=== PATIENT | male | born 1985 | race Caucasian/White ===

== ENCOUNTER 2020-11-02 17:46 | Inpatient (IN) | payer OTHER, SELFPAY ==
[~2020-11-02] VITALS: Ht 175.3 cm; Wt 84.5 kg
[2020-11-02] MEDS ORDERED: NS 1,000 ML IV SCH (18:00)
[2020-11-02 18:36] LABS: HEMATOCRIT 29.8 % (42.0-52.0); HEMOGLOBIN 9.3 g/dl (13.5-17.5); MEAN CORPUSCULAR HEMOGLOBIN 26.6 pg (27.0-33.0); MEAN CORPUSCULAR HGB CONC 31.2 g/dl (32.0-36.5); MEAN CORPUSCULAR VOLUME 85.1 fl (80.0-96.0); PLATELET COUNT, AUTOMATED 510 10^3/uL (150-450)
[2020-11-02] MEDS ORDERED: D5W IV ONE ×3 (18:45→20:00)
[2020-11-02] MEDS ORDERED: ACETYLCYSTEINE IV ONE ×3 (18:45→20:00)
[2020-11-02 18:46] LABS: INR 1.36; PROTHROMBIN TIME 17.1 SECONDS (12.5-14.3)
[2020-11-02 18:47] LABS: PARTIAL THROMBOPLASTIN TIME 38.5 SECONDS (24.2-38.5)
[2020-11-02] MEDS ORDERED: LABE20TAB PO (19:03)
[2020-11-02] MEDS ORDERED: SERT50TA29 PO (19:03)
[2020-11-02] MEDS ORDERED: INVE156I IM (19:03)
[2020-11-02] MEDS ORDERED: VITA1CAP25 (19:03)
[2020-11-02] MEDS ORDERED: MELA10CA PO (19:03)
[2020-11-02] MEDS ORDERED: OLAN5TAB PO (19:03)
[2020-11-02] MEDS ORDERED: HYDR-3363 (19:03)
[2020-11-02 19:07] LABS: ACETAMINOPHEN LEVEL < 2.0 UG/ML (10.0-30.0); ALBUMIN 3.1 GM/DL (3.2-5.2); ALT/SGPT 3289 U/L (12-78); BILIRUBIN,DIRECT 0.3 MG/DL (0.0-0.2); BILIRUBIN,TOTAL 0.4 MG/DL (0.2-1.0); BLOOD UREA NITROGEN 16 MG/DL (7-18); CALCIUM LEVEL 8.4 MG/DL (8.5-10.1); CARBON DIOXIDE LEVEL 23 MEQ/L (21-32); CHLORIDE LEVEL 105 MEQ/L (98-107); CREATININE FOR GFR 0.87 MG/DL (0.70-1.30); ETHYL ALCOHOL (ETHANOL) < 0.003 % (0.000-0.010); GLOMERULAR FILTRATION RATE > 60.0 (>60); GLUCOSE, FASTING 107 MG/DL (70-100); LIPASE 187 U/L (73-393); POTASSIUM SERUM 3.6 MEQ/L (3.5-5.1); SODIUM LEVEL 138 MEQ/L (136-145); TOTAL PROTEIN 6.3 GM/DL (6.4-8.2)
[2020-11-02 19:09] LABS: ATYPICAL LYMPH 3 % (0-5); BASOPHILS 1 % (0-1); EOSINOPHILS 2 % (0-3); LYMPHOCYTES 21 % (16-44); MONOCYTES 6 % (0-5); NEUTROPHILS 63 % (28-66); PLATELET ESTIMATE INCREASED (NORMAL)
[2020-11-02 19:10] LABS: HYPOCHROMASIA 1+; TOXIC VACUOLATION 1+
[2020-11-02] MEDS ORDERED: ASPI81TA26 PO (19:21)
[2020-11-02] MEDS: NS 1,000 ML IV SCH (20:12)
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
[2020-11-02 20:34] LABS: CK-MB VALUE MASS 1.4 NG/ML (<3.6); CPK CREATINE PHOSPHOKINASE 101 U/L (39-308); MB/CK RELATIVE INDEX 1.39 (< OR =4); TROPONIN I < 0.02 NG/ML (< 0.10)
[2020-11-02 21:15] VITALS: BP 140/76
[2020-11-02] MEDS ORDERED: LORazepam 0.5 MG TAB PO PRN (21:50)
[2020-11-02] MEDS: HEPARIN SOD (PORCINE) 5000UNITS/ML 1ML VIAL/SYRINGE SC SCH (22:00)
[2020-11-02] MEDS: traMADol 50 MG TAB PO PRN (22:01)
[2020-11-03] MEDS ORDERED: ACETYLCYSTEINE IV ONE ×4
[2020-11-03] MEDS ORDERED: D5W IV ONE ×4
[2020-11-03 04:00] VITALS: BP 137/77
[2020-11-03] MEDS: NS 1,000 ML IV SCH ×3 (04:20→13:43)
[2020-11-03 06:10] LABS: HEMATOCRIT 29.5 % (42.0-52.0); HEMOGLOBIN 9.2 g/dl (13.5-17.5); MEAN CORPUSCULAR HEMOGLOBIN 26.3 pg (27.0-33.0); MEAN CORPUSCULAR HGB CONC 31.2 g/dl (32.0-36.5); MEAN CORPUSCULAR VOLUME 84.3 fl (80.0-96.0); PLATELET COUNT, AUTOMATED 490 10^3/uL (150-450); WHITE BLOOD COUNT 8.8 10^3/uL (4.0-10.0)
[2020-11-03 06:35] LABS: ALBUMIN 2.8 GM/DL (3.2-5.2); ALT/SGPT 2587 U/L (12-78); BILIRUBIN,TOTAL 0.4 MG/DL (0.2-1.0); BLOOD UREA NITROGEN 9 MG/DL (7-18); CALCIUM LEVEL 8.1 MG/DL (8.5-10.1); CARBON DIOXIDE LEVEL 26 MEQ/L (21-32); CHLORIDE LEVEL 107 MEQ/L (98-107); CREATININE FOR GFR 0.69 MG/DL (0.70-1.30); GLOMERULAR FILTRATION RATE > 60.0 (>60); GLUCOSE, FASTING 86 MG/DL (70-100); MAGNESIUM LEVEL 1.8 MG/DL (1.8-2.4); POTASSIUM SERUM 3.5 MEQ/L (3.5-5.1); SODIUM LEVEL 141 MEQ/L (136-145)
[2020-11-03 07:24] VITALS: BP 137/82
[2020-11-03] MEDS: HEPARIN SOD (PORCINE) 5000UNITS/ML 1ML VIAL/SYRINGE SC SCH ×3 (08:08→20:26)
[2020-11-03] MEDS: ASPIRIN 81MG ENTERIC TABLET PO SCH (08:08)
[2020-11-03] MEDS ORDERED: SERTRALINE HCL 50 MG TAB PO SCH (09:00)
[2020-11-03 09:50] LABS: FERRITIN 1148 NG/ML (26-388); IRON (FE) 61 UG/DL (65-175); PERCENT SATURATION 32.3 % (19.7-50.0); TOTAL IRON BINDING CAPACITY 189 UG/DL (250-450)
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
[2020-11-03 10:30] LABS: VITAMIN B12 LEVEL > 2000 PG/ML (247-911)
[2020-11-03 10:33] LABS: FOLATE 18.9 NG/ML (>5.4)
[2020-11-03 10:48] LABS: HEPATITIS B SURFACE ANTIGEN NEGATIVE (NEGATIVE)
[2020-11-03 11:15] LABS: HEPATITIS B CORE ANTIBODY IGM NEGATIVE (NEGATIVE); HEPATITIS C VIRUS ABY INDEX < 0.0 INDEX (<0.8)
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
[2020-11-03 12:00] VITALS: BP 133/70
[2020-11-03 12:11] LABS: HEPATITIS A ANTIBODY IGM POSITIVE (NEGATIVE)
[2020-11-03] MEDS ORDERED: OXAZEPAM 15 MG CAP PO PRN (13:40)
[2020-11-03] MEDS ORDERED: OXAZEPAM 15 MG CAP PO SCH (14:00)
[2020-11-03 16:00] VITALS: BP 152/96
[2020-11-03] MEDS: traMADol 50 MG TAB PO PRN (17:52)
[2020-11-03 19:08] LABS: ALBUMIN 2.6 GM/DL (3.2-5.2); BILIRUBIN,DIRECT 0.2 MG/DL (0.0-0.2); BILIRUBIN,TOTAL 0.3 MG/DL (0.2-1.0); TOTAL PROTEIN 5.5 GM/DL (6.4-8.2)
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
[2020-11-03 20:00] VITALS: BP 139/76
--- NOTE | 2020-11-03 20:07 | MHIPNPDOC ---
[facility] Progress Note Progress Note DATE OF SERVICE: 11/03/20 Spoke with Sara, his Nurse estiven. She said his ECG showed a QT c of less than 500. For that reason I have recommended 5 mgs of Haldol PO BID for psychosis. His AST and ALT are trending down. I would recommend to have another ECG done tomorrow in a.m.. Vital Signs Vital Signs Date Time Temp Pulse Resp B/P (MAP) Pulse Ox O2 Delivery O2 Flow Rate FiO2 11/03/20 17:52 18 11/03/20 16:00 98.0 107 152/96 (114) 99 Room Air Laboratory Data 24H Labs Laboratory Tests 2 11/03/20 05:28: Nucleated Red Blood Cells % (auto) 0.0, Anion Gap 8, Glomerular Filtration Rate > 60.0, Calcium Level 8.1L, Magnesium Level 1.8, Iron Level 61L, Total Iron Binding Capacity 189L, Transferrin % Saturation 32.3, Ferritin 1148H, Total Bilirubin 0.4, Aspartate Amino Transf (AST/SGOT) 570H, Alanine Aminotransferase (ALT/SGPT) 2587H, Alkaline Phosphatase 124H, Total Protein 6.0L, Albumin 2.8L, Albumin/Globulin Ratio 0.9, Vitamin B12 Level > 2000H, Folate 18.9 11/03/20 12:25: 11/03/20 18:22: Total Bilirubin 0.3, Aspartate Amino Transf (AST/SGOT) 343H, Alanine Aminotransferase (ALT/SGPT) 1935H, Alkaline Phosphatase 122H, Total Protein 5.5L, Albumin 2.6L, Albumin/Globulin Ratio 0.9, Direct Bilirubin 0.2 CBC/BMP Laboratory Tests 11/03/20 05:28 Current Medications Current Medications Medications (Trade) Dose Ordered Sig/Darío Route PRN Reason Start Time Stop Time Status Last Admin Dose Admin Aspirin (Ecotrin) 81 mg DAILY PO 11/03/20 09:00 11/03/20 08:08 Heparin Sodium (Porcine) (Heparin) 5,000 units Q12H SC 11/02/20 21:00 11/03/20 08:08 Home Med (Med Rec Complete!) ASDIRECTED XX 11/02/20 19:25 11/02/20 19:26 DC Lorazepam (Ativan) 0.5 mg Q6HP PRN PO ANXIETY 11/02/20 21:50 11/03/20 12:20 DC 11/02/20 22:00 Oxazepam (Serax) 30 mg BID PO 11/03/20 19:30 Oxazepam (Serax) 30 mg Q8H PO 11/03/20 14:00 11/03/20 13:37 DC Oxazepam (Serax) 30 mg Q8H PRN PO ANXIETY 11/03/20 13:40 11/03/20 19:26 DC Sertraline HCl (Zoloft) 150 mg DAILY PO 11/03/20 09:00 11/03/20 11:30 DC 11/03/20 08:08 Sodium Chloride 1,000 ml @ 100 mls/hr Q10H IV 11/02/20 18:00 11/02/20 20:09 DC 11/02/20 18:34 Sodium Chloride 1,000 ml @ 120 mls/hr Q8H20M IV 11/02/20 20:00 11/03/20 13:43 Tramadol HCl (Ultram) 50 mg Q8HP PRN PO MODERATE PAIN (PS 5-7) 11/02/20 21:50 11/03/20 17:52 Allergies Coded Allergies: No Known Allergies (Unverified , 11/02/20) JORDAN CLAY MD Nov 03, 2020 20:07
[2020-11-03] MEDS: OXAZEPAM 15 MG CAP PO SCH (20:24)
[2020-11-03] MEDS: haloperidoL 5 MG TAB PO SCH (21:24)
[2020-11-04] VITALS: BP 143/76
[2020-11-04] MEDS: NS 1,000 ML IV SCH ×3 (01:14→11:24)
[2020-11-04 04:00] VITALS: BP 127/82
[2020-11-04 05:40] LABS: HEMATOCRIT 28.4 % (42.0-52.0); HEMOGLOBIN 8.7 g/dl (13.5-17.5); MEAN CORPUSCULAR HEMOGLOBIN 26.8 pg (27.0-33.0); MEAN CORPUSCULAR HGB CONC 30.6 g/dl (32.0-36.5); MEAN CORPUSCULAR VOLUME 87.4 fl (80.0-96.0); PLATELET COUNT, AUTOMATED 400 10^3/uL (150-450); RED BLOOD COUNT 3.25 10^6/uL (4.30-6.10); WHITE BLOOD COUNT 5.4 10^3/uL (4.0-10.0)
[2020-11-04 06:08] LABS: ALBUMIN 2.6 GM/DL (3.2-5.2); ALT/SGPT 1636 U/L (12-78); BILIRUBIN,DIRECT 0.2 MG/DL (0.0-0.2); BILIRUBIN,TOTAL 0.2 MG/DL (0.2-1.0); BLOOD UREA NITROGEN 11 MG/DL (7-18); CALCIUM LEVEL 7.7 MG/DL (8.5-10.1); CARBON DIOXIDE LEVEL 25 MEQ/L (21-32); CHLORIDE LEVEL 111 MEQ/L (98-107); CREATININE FOR GFR 0.62 MG/DL (0.70-1.30); GLOMERULAR FILTRATION RATE > 60.0 (>60); GLUCOSE, FASTING 80 MG/DL (70-100); POTASSIUM SERUM 3.8 MEQ/L (3.5-5.1); SODIUM LEVEL 145 MEQ/L (136-145); TOTAL PROTEIN 5.5 GM/DL (6.4-8.2)
[2020-11-04 07:26] VITALS: BP 151/87
[2020-11-04] MEDS: OXAZEPAM 15 MG CAP PO SCH ×2 (08:29→21:02)
[2020-11-04] MEDS: ASPIRIN 81MG ENTERIC TABLET PO SCH (08:29)
[2020-11-04] MEDS: haloperidoL 5 MG TAB PO SCH ×2 (08:30→21:02)
[2020-11-04] MEDS: HEPARIN SOD (PORCINE) 5000UNITS/ML 1ML VIAL/SYRINGE SC SCH ×3 (08:30→21:03)
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
--- NOTE | 2020-11-04 11:06 | ECHO ---
DATE OF PROCEDURE: 11/03/2020 Age: 35 Gender: Male Height: 175 cm Weight: 81 kg REFERRING PHYSICIAN: Oscar Simon DO. INDICATION: Cardiac dysrhythmia. MEASUREMENTS: IVS 0.8 cm LV 5.0 cm LVPW 1.0 cm LA 3.7 cm Aorta 2.9 cm RV 3.2 cm IVC 1.2 cm Mitral E wave velocity 106 A wave 94 E prime septal 12.3 E prime lateral 13.8 FINDINGS: This study is of acceptable technical quality. Underlying sinus rhythm. Left ventricle is normal size and systolic function. Estimated EF approximately 60%. Right ventricle also appears to have normal size and systolic function. Aortic, mitral, and tricuspid valves appear normal. Pulmonic valve was not well seen. No pericardial effusion is noted. Inferior vena cava is normal size and appropriately collapses with inspiration indicative of normal central venous pressure. Aortic root and abdominal aorta appear normal. Aortic arch was not well seen. Doppler interrogation reveals competent aortic and mitral valves. Same applies for tricuspid valve. Mitral inflow pattern and tissue Doppler imaging of mitral annulus revealed normal diastolic function. CONCLUSIONS: 1. Study is of acceptable technical quality, underlying sinus tachycardia. 2. Normal LV size and systolic function, normal diastolic function. 3. No significant valvular disease. 4. Normal central venous pressure. 5. Unable to estimate pulmonary artery pressure but no signs to suggest pulmonary hypertension. MTDD
[2020-11-04 11:45] VITALS: BP 136/84
[2020-11-04 14:00] VITALS: BP 138/82
--- NOTE | 2020-11-04 16:58 | ECGEPIP ---
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 Electronically Signed on 11-04-2020 16:58:36 EDT by Giorgi Dunn
--- NOTE | 2020-11-04 17:00 | ECGEPIP ---
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 Electronically Signed on 11-04-2020 16:59:58 EDT by Giorgi Dunn
[2020-11-04] MEDS: traMADol 50 MG TAB PO PRN (17:51)
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
[2020-11-04] MEDS ORDERED: PROCHLORPERAZINE 5 MG TAB (S0183) PO PRN (20:10)
[2020-11-04 22:00] VITALS: BP 146/84
[2020-11-05 06:00] VITALS: BP 135/90
[2020-11-05 06:20] LABS: HEMATOCRIT 29.6 % (42.0-52.0); HEMOGLOBIN 9.1 g/dl (13.5-17.5); MEAN CORPUSCULAR HEMOGLOBIN 27.1 pg (27.0-33.0); MEAN CORPUSCULAR HGB CONC 30.7 g/dl (32.0-36.5); MEAN CORPUSCULAR VOLUME 88.1 fl (80.0-96.0); PLATELET COUNT, AUTOMATED 351 10^3/uL (150-450); RED BLOOD COUNT 3.36 10^6/uL (4.30-6.10); WHITE BLOOD COUNT 5.5 10^3/uL (4.0-10.0)
[2020-11-05 06:51] LABS: ALBUMIN 2.7 GM/DL (3.2-5.2); ALT/SGPT 1215 U/L (12-78); BILIRUBIN,TOTAL 0.3 MG/DL (0.2-1.0); BLOOD UREA NITROGEN 6 MG/DL (7-18); CALCIUM LEVEL 8.4 MG/DL (8.5-10.1); CARBON DIOXIDE LEVEL 25 MEQ/L (21-32); CHLORIDE LEVEL 109 MEQ/L (98-107); CREATININE FOR GFR 0.77 MG/DL (0.70-1.30); GLOMERULAR FILTRATION RATE > 60.0 (>60); GLUCOSE, FASTING 84 MG/DL (70-100); POTASSIUM SERUM 3.9 MEQ/L (3.5-5.1); SODIUM LEVEL 141 MEQ/L (136-145); TOTAL PROTEIN 5.8 GM/DL (6.4-8.2)
[2020-11-05] MEDS: OXAZEPAM 15 MG CAP PO SCH ×2 (08:33→21:04)
[2020-11-05] MEDS: haloperidoL 5 MG TAB PO SCH ×2 (08:33→21:04)
[2020-11-05] MEDS: ASPIRIN 81MG ENTERIC TABLET PO SCH (08:33)
[2020-11-05] MEDS: HEPARIN SOD (PORCINE) 5000UNITS/ML 1ML VIAL/SYRINGE SC SCH ×2 (08:34→21:00)
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
[2020-11-05 14:00] VITALS: BP 143/82
[2020-11-05] MEDS: traMADol 50 MG TAB PO PRN (14:43)
[2020-11-05] MEDS ORDERED: diphenhydrAMINE 50MG/ML VIAL (J1200) IV ONE (15:15)
[2020-11-05 22:00] VITALS: BP 136/68
[2020-11-06 01:07] LABS: CERULOPLASMIN 17.1 mg/dL (16.0-31.0)
[2020-11-06 06:00] VITALS: BP 139/88
[2020-11-06 06:11] LABS: HEMATOCRIT 32.2 % (42.0-52.0); HEMOGLOBIN 9.9 g/dl (13.5-17.5); MEAN CORPUSCULAR HEMOGLOBIN 27.2 pg (27.0-33.0); MEAN CORPUSCULAR HGB CONC 30.7 g/dl (32.0-36.5); MEAN CORPUSCULAR VOLUME 88.5 fl (80.0-96.0); PLATELET COUNT, AUTOMATED 426 10^3/uL (150-450); RED BLOOD COUNT 3.64 10^6/uL (4.30-6.10); WHITE BLOOD COUNT 8.7 10^3/uL (4.0-10.0)
[2020-11-06 06:40] LABS: ALBUMIN 2.8 GM/DL (3.2-5.2); ALT/SGPT 885 U/L (12-78); BILIRUBIN,TOTAL 0.1 MG/DL (0.2-1.0); BLOOD UREA NITROGEN 9 MG/DL (7-18); CALCIUM LEVEL 8.5 MG/DL (8.5-10.1); CARBON DIOXIDE LEVEL 26 MEQ/L (21-32); CHLORIDE LEVEL 109 MEQ/L (98-107); CREATININE FOR GFR 0.65 MG/DL (0.70-1.30); GLOMERULAR FILTRATION RATE > 60.0 (>60); GLUCOSE, FASTING 98 MG/DL (70-100); POTASSIUM SERUM 4.1 MEQ/L (3.5-5.1); SODIUM LEVEL 142 MEQ/L (136-145); TOTAL PROTEIN 6.2 GM/DL (6.4-8.2)
[2020-11-06] MEDS ORDERED: TRAM50TA2 PO (08:34)
[2020-11-06] MEDS ORDERED: OXAZ15CA4 PO (08:34)
[2020-11-06] MEDS ORDERED: HALO5TA PO (08:34)
[2020-11-06] MEDS: HEPARIN SOD (PORCINE) 5000UNITS/ML 1ML VIAL/SYRINGE SC SCH (09:00)
[2020-11-06] MEDS: OXAZEPAM 15 MG CAP PO SCH (09:38)
[2020-11-06] MEDS: ASPIRIN 81MG ENTERIC TABLET PO SCH (09:39)
[2020-11-06] MEDS: traMADol 50 MG TAB PO PRN (09:39)
[2020-11-06] MEDS: haloperidoL 5 MG TAB PO SCH (09:39)
--- NOTE | 2020-11-06 11:24 | REP ---
INDICATION: abdominal pain COMPARISON: None. TECHNIQUE: Supine view of the abdomen and pelvis. FINDINGS: Bowel gas pattern is nonspecific and without obstruction or perforation. No organomegaly. No abnormal calcifications. Skeletal structures intact. Surgical suture material identified in the right mid abdomen. IMPRESSION: Normal abdominal radiograph. <Electronically signed by Derrek Sexton > 11/06/20 [id number]
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
[2020-11-06 14:00] VITALS: BP 129/88
== END 2020-11-06 17:41 ==
LOC: M ED 17:46 → M ED INP 19:46 → M PCU 21:25 → M MSPAV 11-04 11:39
PROVIDERS: ADMIT Internal Medicine; ATTEND Internal Medicine
DX: B15.9 Hepatitis A without hepatic coma (principal); F25.9 Schizoaffective disorder, unspecified; I10 Essential (primary) hypertension; K91.870 Postprocedural hematoma of a digestive system organ or structure following a digestive system procedure; F31.9 Bipolar disorder, unspecified; F17.200 Nicotine dependence, unspecified, uncomplicated; R07.9 Chest pain, unspecified; T39.1X5A Adverse effect of 4-Aminophenol derivatives, initial encounter; R94.31 Abnormal electrocardiogram [ECG] [EKG]; F10.10 Alcohol abuse, uncomplicated; Z91.5 Personal history of self-harm; Z90.49 Acquired absence of other specified parts of digestive tract; Z79.82 Long term (current) use of aspirin; Z79.899 Other long term (current) drug therapy

== ENCOUNTER 2020-11-06 14:51 | Inpatient (IN) | payer OTHER ==
[~2020-11-06] VITALS: Ht 175.3 cm; Wt 86.4 kg
[~2020-11-06 14:51] MED LIST: ASPI81TA26 PO; HALO5TA PO; HYDR-3363; INVE156I IM; LABE20TAB PO; MELA10CA PO; OLAN5TAB PO; OXAZ15CA4 PO; SERT50TA29 PO; TRAM50TA2 PO; VITA1CAP25
[2020-11-06] MEDS ORDERED: MAALOX 30 ML SUSP *UDC PO PRN (17:20)
[2020-11-06 17:53] VITALS: BP 130/88
[2020-11-06] MEDS: haloperidoL 5 MG TAB PO SCH (20:21)
[2020-11-06] MEDS: traZODone 50 MG TAB PO PRN (20:21)
[2020-11-06] MEDS: OXAZEPAM 15 MG CAP PO SCH (20:22)
[2020-11-07 06:00] VITALS: BP 141/85
[2020-11-07] MEDS: haloperidoL 5 MG TAB PO SCH ×2 (09:26→20:17)
[2020-11-07] MEDS: ASPIRIN 81MG ENTERIC TABLET PO SCH (09:26)
[2020-11-07] MEDS: NICOTINE 21MG/24HR 1 EA TRANSDERMAL TD SCH (12:04)
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
[2020-11-07] MEDS: traMADol 50 MG TAB PO PRN (15:04)
[2020-11-07 16:10] VITALS: BP_SYST 130; BP_SYST 140; BP_DIAS 78; BP_DIAS 83
[2020-11-07] MEDS ORDERED: hydrOXYzine 25 MG TAB PO ONE (17:15)
[2020-11-07] MEDS: hydrOXYzine 25 MG TAB PO SCH (20:17)
[2020-11-07] MEDS: traZODone 50 MG TAB PO PRN (20:17)
[2020-11-07] MEDS: OXAZEPAM 15 MG CAP PO SCH (20:18)
[2020-11-08 06:14] VITALS: BP 132/80
[2020-11-08] MEDS: NICOTINE 21MG/24HR 1 EA TRANSDERMAL TD SCH (09:39)
[2020-11-08] MEDS: hydrOXYzine 25 MG TAB PO SCH ×2 (09:40→20:04)
[2020-11-08] MEDS: haloperidoL 5 MG TAB PO SCH ×2 (09:40→20:04)
[2020-11-08] MEDS: ASPIRIN 81MG ENTERIC TABLET PO SCH (09:40)
[2020-11-08] MEDS: traMADol 50 MG TAB PO PRN ×2 (09:41→17:20)
[2020-11-08 16:04] VITALS: BP 133/77
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
[2020-11-08] MEDS: traZODone 50 MG TAB PO PRN (20:04)
[2020-11-08] MEDS: OXAZEPAM 15 MG CAP PO SCH (20:04)
[2020-11-09 06:23] VITALS: BP 116/65
[2020-11-09] MEDS: hydrOXYzine 25 MG TAB PO SCH ×2 (08:44→20:54)
[2020-11-09] MEDS: ASPIRIN 81MG ENTERIC TABLET PO SCH (08:44)
[2020-11-09] MEDS: haloperidoL 5 MG TAB PO SCH (08:44)
[2020-11-09] MEDS: NICOTINE 21MG/24HR 1 EA TRANSDERMAL TD SCH (08:44)
[2020-11-09] MEDS: traMADol 50 MG TAB PO PRN ×2 (09:26→20:54)
[2020-11-09] MEDS: OLANZapine 10 MG TAB PO SCH ×2 (10:31→20:53)
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
[2020-11-09 16:09] VITALS: BP 119/59
[2020-11-09] MEDS: OXAZEPAM 15 MG CAP PO SCH (20:53)
[2020-11-09] MEDS: traZODone 50 MG TAB PO PRN (20:53)
[2020-11-10 06:34] VITALS: BP 148/78
[2020-11-10] MEDS: hydrOXYzine 25 MG TAB PO SCH ×2 (08:59→21:24)
[2020-11-10] MEDS: NICOTINE 21MG/24HR 1 EA TRANSDERMAL TD SCH (09:00)
[2020-11-10] MEDS: ASPIRIN 81MG ENTERIC TABLET PO SCH (09:00)
[2020-11-10] MEDS: OLANZapine 10 MG TAB PO SCH ×2 (09:00→21:24)
[2020-11-10] MEDS: traMADol 50 MG TAB PO PRN ×2 (09:01→21:25)
[2020-11-10] MEDS: SERTRALINE HCL 50 MG TAB PO SCH (14:52)
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
[2020-11-10 18:00] VITALS: BP 144/93
[2020-11-10] MEDS ORDERED: NITROGLYCERIN 0.4 MG SUBL TABLET SL STA (18:09)
[2020-11-10] MEDS ORDERED: GI COCKTAIL 50ML BTL(HYOSCYAMINE/MAALOX/LIDOCAINE VISCOUS)(1:3:1) PO ONE (18:10)
[2020-11-10] MEDS ORDERED: SUCRALFATE SUSP 1GM/10ML UD PO ONE (18:10)
[2020-11-10] MEDS ORDERED: PANTOPRAZOLE 40MG TAB (PROTONIX) PO ONE (18:10)
[2020-11-10 18:38] VITALS: BP 120/117
[2020-11-10] MEDS ORDERED: LORazepam 2 MG TAB PO STA (18:42)
[2020-11-10 18:54] LABS: BASO % 0.5 % (0.0-1.0); EOS # 0.2 10^3/uL (0.0-0.5); EOS % 2.2 % (0.0-3.0); HEMATOCRIT 38.7 % (42.0-52.0); HEMOGLOBIN 11.6 g/dl (13.5-17.5); LYMPH # 2.5 10^3/uL (1.5-5.0); LYMPH % 30.3 % (24.0-44.0); MEAN CORPUSCULAR HEMOGLOBIN 26.9 pg (27.0-33.0); MEAN CORPUSCULAR VOLUME 89.8 fl (80.0-96.0); MONO # 0.7 10^3/uL (0.0-0.8); MONO % 8.9 % (2.0-8.0); NEUTROPHILS # 4.8 10^3/uL (1.5-8.5); NEUTROPHILS % 57.6 % (36.0-66.0); PLATELET COUNT, AUTOMATED 412 10^3/uL (150-450); RED BLOOD COUNT 4.31 10^6/uL (4.30-6.10); WHITE BLOOD COUNT 8.4 10^3/uL (4.0-10.0)
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
[2020-11-10 19:13] LABS: ERYTHROCYTE SEDIMENTATION RATE 43 mm/hr (0-15)
[2020-11-10] MEDS: GASTROGRAFIN SOLUTION 30ML PO SCH ×2 (19:18→19:19)
[2020-11-10 19:22] LABS: ALBUMIN 3.5 GM/DL (3.2-5.2); ALT/SGPT 265 U/L (12-78); BILIRUBIN,TOTAL 0.1 MG/DL (0.2-1.0); BLOOD UREA NITROGEN 15 MG/DL (7-18); C REACTIVE PROTEIN QUANTITATIV 0.63 MG/DL (0.00-0.30); CALCIUM LEVEL 9.1 MG/DL (8.5-10.1); CARBON DIOXIDE LEVEL 29 MEQ/L (21-32); CHLORIDE LEVEL 102 MEQ/L (98-107); CK-MB VALUE MASS < 1.0 NG/ML (<3.6); CPK CREATINE PHOSPHOKINASE 21 U/L (39-308); CREATININE FOR GFR 0.84 MG/DL (0.70-1.30); GLOMERULAR FILTRATION RATE > 60.0 (>60); GLUCOSE, FASTING 82 MG/DL (70-100); MB/CK RELATIVE INDEX 4.76 (< OR =4); POTASSIUM SERUM 4.2 MEQ/L (3.5-5.1); SODIUM LEVEL 137 MEQ/L (136-145); TOTAL PROTEIN 7.2 GM/DL (6.4-8.2); TROPONIN I < 0.02 NG/ML (< 0.10)
--- NOTE | 2020-11-10 19:24 | ECGEPIP ---
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
[2020-11-10] MEDS ORDERED: ISOVUE-370 76% 100ML VIAL As Ordered ONE (20:53)
[2020-11-10] MEDS: traZODone 50 MG TAB PO PRN (21:24)
[2020-11-10] MEDS: OXAZEPAM 15 MG CAP PO SCH (21:24)
--- NOTE | 2020-11-10 22:10 | REPVR ---
PROCEDURE INFORMATION: Exam: CT Abdomen And Pelvis With Contrast Exam date and time: 11/10/2020 9:04 PM Age: 35 years old Clinical indication: Abnormal findings; Abnormal lab test; Elevated liver enzymes; Additional info: Abn lfts chest pain TECHNIQUE: Imaging protocol: Computed tomography of the abdomen and pelvis with contrast. Radiation optimization: All CT scans at this facility use at least one of these dose optimization techniques: automated exposure control; mA and/or kV adjustment per patient size (includes targeted exams where dose is matched to clinical indication); or iterative reconstruction. Contrast material: ISOVUE 370; Contrast volume: 100 ml; Contrast route: INTRAVENOUS (IV); COMPARISON: [place] Abdomen,Flat Plate KUB 11/06/2020 11:06 AM FINDINGS: Liver: Normal. No mass. Gallbladder and bile ducts: Normal. No calcified stones. No ductal dilation. Pancreas: Normal. No ductal dilation. Spleen: Normal. No splenomegaly. Adrenal glands: Normal. No mass. Kidneys and ureters: Normal. No hydronephrosis. Stomach and bowel: Postoperative changes in the small bowel. Mild soft tissue edema adjacent to the small bowel at the anastomosis. No bowel obstruction or inflammatory changes. However the adjacent rectum and colon are unremarkable. No inflammatory changes or wall thickening in the colon. Appendix: No evidence of appendicitis. Intraperitoneal space: There is a small peripherally enhancing fluid collection with mild surrounding edema between the dome of the urinary bladder and sigmoid colon measuring 1.8 x 1.3 x 3.8 cm. There may be a tract communicating with the rectum posterior to the collection (images 131 and 132 of series 501). No other fluid collections. No pneumoperitoneum. Retroperitoneal space: Mild retroperitoneal edema. Vasculature: Unremarkable. No abdominal aortic aneurysm. Lymph nodes: Unremarkable. No enlarged lymph nodes. Urinary bladder: Mild wall thickening in the dome of the urinary bladder. Remainder of the bladder is unremarkable. Reproductive: Unremarkable as visualized. Bones/joints: Unremarkable. No acute fracture. Soft tissues: Postoperative changes in the anterior abdominal wall. IMPRESSION: 1. Small peripherally enhancing fluid collection in the pelvis between the dome of the bladder and sigmoid colon concerning for a small abscess. Possible communication with the rectum without other inflammatory changes in the GI tract. No bowel obstruction. 2. Mild wall thickening in the dome of the bladder may be due to cystitis or the adjacent pelvic fluid collection. Electronically signed by: Faizan Staples On 11/10/2020 22:10:49 PM
--- NOTE | 2020-11-10 22:14 | REPVR ---
PROCEDURE INFORMATION: Exam: CT Angiography Chest With Contrast Exam date and time: 11/10/2020 9:04 PM Age: 35 years old Clinical indication: Chest pain; Additional info: Chest pain R/O pe TECHNIQUE: Imaging protocol: Computed tomographic angiography of the chest with contrast. 3D rendering (Not supervised by radiologist): MIP and/or 3D reconstructed images were created by the technologist. Radiation optimization: All CT scans at this facility use at least one of these dose optimization techniques: automated exposure control; mA and/or kV adjustment per patient size (includes targeted exams where dose is matched to clinical indication); or iterative reconstruction. Contrast material: ISOVUE 370; Contrast volume: 100 ml; Contrast route: INTRAVENOUS (IV); COMPARISON: No relevant prior studies available. FINDINGS: Pulmonary arteries: Normal. No pulmonary emboli. Aorta: Unremarkable. No aortic aneurysm. No aortic dissection. Lungs: Unremarkable. No consolidation. No masses. Pleural spaces: Unremarkable. No pneumothorax. No pleural effusion. Heart: Unremarkable. No cardiomegaly. No pericardial effusion. Lymph nodes: Unremarkable. No enlarged lymph nodes. Bones/joints: Unremarkable. No acute fracture. Soft tissues: Unremarkable. IMPRESSION: No acute findings. Electronically signed by: Faizan Staples On 11/10/2020 22:14:31 PM
[2020-11-11 06:28] VITALS: BP 106/56
[2020-11-11] MEDS: traMADol 50 MG TAB PO PRN ×2 (07:52→18:48)
[2020-11-11] MEDS: hydrOXYzine 25 MG TAB PO SCH ×2 (08:32→20:11)
[2020-11-11] MEDS: NICOTINE 21MG/24HR 1 EA TRANSDERMAL TD SCH (08:32)
[2020-11-11] MEDS: OLANZapine 10 MG TAB PO SCH ×2 (08:32→20:12)
[2020-11-11] MEDS: ASPIRIN 81MG ENTERIC TABLET PO SCH (08:32)
[2020-11-11] MEDS: SERTRALINE HCL 50 MG TAB PO SCH (08:32)
[2020-11-11 09:18] LABS: APPEARANCE, URINE CLEAR (CLEAR); BACTERIA, URINE AUTO NEGATIVE (NEGATIVE); BILIRUBIN, URINE AUTO NEGATIVE (NEGATIVE); BLOOD, URINE BLOOD NEGATIVE (NEGATIVE); COLOR, URINE YELLOW (YELLOW); GLUCOSE, URINE (UA) AUTO NEGATIVE (NEGATIVE); KETONE, URINE AUTO NEGATIVE (NEGATIVE); LEUKOCYTE ESTERASE, URINE AUTO NEGATIVE (NEGATIVE); NITRITE, URINE AUTO NEGATIVE (NEGATIVE); PROTEIN, URINE AUTO NEGATIVE (NEGATIVE); RBC, URINE AUTO 0 /HPF (0-3); SPECIFIC GRAVITY URINE AUTO 1.016 (1.002-1.035); SQUAMOUS EPITHELIAL CELL UR AU 0 /HPF (0-6); UROBILINOGEN, URINE AUTO 0.2 mg/dL (0.0-2.0); WBC, URINE AUTO 1 /HPF (0-3)
[2020-11-11 11:14] LABS: HEPATITIS B CORE ANTIBODY IGM NEGATIVE (NEGATIVE); HEPATITIS B SURFACE ANTIGEN NEGATIVE (NEGATIVE); HEPATITIS C VIRUS ABY INDEX < 0.0 INDEX (<0.8)
[2020-11-11 11:40] LABS: HEPATITIS A ANTIBODY IGM EQUIVOCAL (NEGATIVE)
[2020-11-11] MEDS ORDERED: TUBERCULIN PPD 5 UNITS/0.1 ML ID ONE (12:00)
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
[2020-11-11 16:46] VITALS: BP 142/77
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
[2020-11-11] MEDS: MOM 30ML SUSPENSION UDC PO PRN (18:48)
[2020-11-11] MEDS: OXAZEPAM 15 MG CAP PO SCH (20:11)
[2020-11-11] MEDS: IBUPROFEN 600MG TAB PO PRN (20:12)
[2020-11-11] MEDS: traZODone 50 MG TAB PO PRN (20:12)
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
[2020-11-12 06:45] VITALS: BP 118/65
[2020-11-12] MEDS: SERTRALINE HCL 50 MG TAB PO SCH (10:12)
[2020-11-12] MEDS: CALCIUM CARBONATE 500 MG CHEW U/D PO SCH ×3 (10:12→20:05)
[2020-11-12] MEDS: ASPIRIN 81MG ENTERIC TABLET PO SCH (10:12)
[2020-11-12] MEDS: hydrOXYzine 25 MG TAB PO SCH ×2 (10:12→20:04)
[2020-11-12] MEDS: OLANZapine 10 MG TAB PO SCH ×2 (10:13→20:05)
[2020-11-12] MEDS: NICOTINE 21MG/24HR 1 EA TRANSDERMAL TD SCH (10:13)
[2020-11-12 17:14] VITALS: BP 114/97
[2020-11-12] MEDS: traZODone 50 MG TAB PO PRN (20:04)
[2020-11-12] MEDS: traMADol 50 MG TAB PO PRN (20:05)
[2020-11-12] MEDS: OXAZEPAM 15 MG CAP PO SCH (20:05)
[2020-11-13 06:46] VITALS: BP 126/68
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
[2020-11-13] MEDS: hydrOXYzine 25 MG TAB PO SCH ×3 (07:30→20:27)
[2020-11-13] MEDS: traMADol 50 MG TAB PO PRN ×2 (08:23→20:29)
[2020-11-13] MEDS: NICOTINE 21MG/24HR 1 EA TRANSDERMAL TD SCH (08:23)
[2020-11-13] MEDS: SERTRALINE HCL 50 MG TAB PO SCH (08:23)
[2020-11-13] MEDS: CALCIUM CARBONATE 500 MG CHEW U/D PO SCH ×3 (08:23→20:29)
[2020-11-13] MEDS: ASPIRIN 81MG ENTERIC TABLET PO SCH (08:24)
[2020-11-13] MEDS: OLANZapine 10 MG TAB PO SCH ×2 (08:39→20:28)
[2020-11-13] MEDS ORDERED: PPD DOCUMENTATION ENTRY MISC ID SCH (10:00)
[2020-11-13] MEDS ORDERED: PPD DOCUMENTATION ENTRY MISC XX ONE (11:05)
[2020-11-13 18:18] VITALS: BP 132/76
[2020-11-13] MEDS: traZODone 50 MG TAB PO PRN (20:28)
[2020-11-13] MEDS: IBUPROFEN 600MG TAB PO PRN (20:28)
[2020-11-13] MEDS ORDERED: OLANZapine ORAL DISINTEGRATING TAB 5MG PO ONE (20:55)
[2020-11-13] MEDS ORDERED: LORazepam 2 MG TAB PO ONE ×2 (20:55→22:15)
[2020-11-13] MEDS ORDERED: haloperidoL 5 MG TAB PO ONE (22:15)
[2020-11-14 06:19] VITALS: BP 128/60
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
[2020-11-14] MEDS: hydrOXYzine 25 MG TAB PO SCH ×3 (08:47→20:08)
[2020-11-14] MEDS: CALCIUM CARBONATE 500 MG CHEW U/D PO SCH ×3 (08:47→20:09)
[2020-11-14] MEDS: SERTRALINE HCL 50 MG TAB PO SCH (08:47)
[2020-11-14] MEDS: OLANZapine 10 MG TAB PO SCH ×2 (08:48→20:09)
[2020-11-14] MEDS: ASPIRIN 81MG ENTERIC TABLET PO SCH (08:48)
[2020-11-14] MEDS: NICOTINE 21MG/24HR 1 EA TRANSDERMAL TD SCH (08:48)
[2020-11-14] MEDS: traMADol 50 MG TAB PO PRN ×2 (08:49→20:10)
[2020-11-14 16:38] VITALS: BP 117/60
[2020-11-14] MEDS: traZODone 50 MG TAB PO PRN (20:09)
[2020-11-14] MEDS: MOM 30ML SUSPENSION UDC PO PRN (22:11)
[2020-11-14] MEDS ORDERED: traZODone 50 MG TAB PO ONE (22:40)
[2020-11-15 06:46] VITALS: BP 135/87
[2020-11-15] MEDS: traMADol 50 MG TAB PO PRN ×2 (08:48→20:37)
[2020-11-15] MEDS: hydrOXYzine 25 MG TAB PO SCH ×3 (08:49→20:36)
[2020-11-15] MEDS: CALCIUM CARBONATE 500 MG CHEW U/D PO SCH ×3 (08:49→20:36)
[2020-11-15] MEDS: OLANZapine 10 MG TAB PO SCH ×2 (08:49→20:36)
[2020-11-15] MEDS: ASPIRIN 81MG ENTERIC TABLET PO SCH (08:49)
[2020-11-15] MEDS: SERTRALINE HCL 50 MG TAB PO SCH (08:49)
[2020-11-15] MEDS: NICOTINE 21MG/24HR 1 EA TRANSDERMAL TD SCH (08:50)
[2020-11-15] MEDS: MOM 30ML SUSPENSION UDC PO PRN (15:44)
[2020-11-15 17:39] VITALS: BP 108/85
[2020-11-15] MEDS: SENOKOT S TAB PO SCH (19:08)
[2020-11-15] MEDS: traZODone 50 MG TAB PO PRN (20:36)
[2020-11-15] MEDS ORDERED: PREPARATION H OINTMENT (HEMORRHOID) PR PRN (20:45)
[2020-11-15] MEDS: MIRALAX *UNIT DOSE* 17GM PACKET PO SCH (21:49)
--- NOTE | 2020-11-16 08:27 | MHIPNPDOC ---
[facility] Progress Note Progress Note DATE OF SERVICE: 11/16/20 HISTORY: 35-year-old male was delusions of this organs being harvested, has cut himself severely with life-threatening cuts. He continues paranoid and flat and states she wants long-term care because he has had short-term care and it has not helped him."I dont want to end up on somebody"s plate". Pt remains seclusive, flat quietly paranoid which led to him cutting open his abdomen.Medications so far not effective. He worries about the MDs needed to complete his documentation for [facility] treatment and requires reassurance that his organs will not be eaten, his 2 PC's have been completed. Dr. Coffey will be assuming her care. No change in medication at this time VITAL SIGNS: See below. NEW TEST RESULTS:. None. CURRENT MEDICATIONS: See below. MENTAL STATUS EXAMINATION: Patient is a 35-year old male, who is requesting long-term care. Speech: Is., Quiet. Language skills are. No gross disturbance. Thought processes including: Concerned about his organs being cut out and harvested. Thought content: As above. Abstract reasoning, and computation: Able to abstract. Description of associations:. No loose associations. Description of abnormal or psychotic thoughts: As above. Judgment: Poor. Insight: Poor. Orientation: 3. Recent and remote memory: Intact. Attention span and concentration:. Poor. Language: No gross disturbance. Fund of knowledge:, Limited. Mood: Sad. Affect:, Flat. DIAGNOSES: 1. Paranoid schizophrenia. 2.. Depression. 3.. None. ASSESSMENT: Patient interested in long-term care. Meanwhile, we'll attempt to treat him with neuroleptics and antidepressants MANAGEMENT PLAN: As above. TIME SPENT: 25 minutes. Vital Signs Vital Signs Date Time Temp Pulse Resp B/P (MAP) Pulse Ox O2 Delivery O2 Flow Rate FiO2 11/15/20 21:07 17 11/15/20 17:39 97.8 124 108/85 (93) 11/15/20 08:48 Room Air 11/15/20 06:46 97 Current Medications Current Medications Medications (Trade) Dose Ordered Sig/Darío Route PRN Reason Start Time Stop Time Status Last Admin Dose Admin Al Hydrox/Mg Hydrox/Simethicone (Mylanta) 30 ml Q4HP PRN PO HEARTBURN/INDIGESTION 11/06/20 17:20 11/11/20 18:48 Aspirin (Ecotrin) 81 mg DAILY PO 11/07/20 09:00 11/15/20 08:49 Calcium Carbonate (Tums) 1,000 mg TID PO 11/12/20 09:00 11/15/20 20:36 Diatrizoate Meglum/ Diatrizoate Sod (Gastrografin) 10 ml Q30M PO 11/10/20 19:15 11/10/20 19:46 DC 11/10/20 19:19 Haloperidol (Haldol) 5 mg BID PO 11/06/20 21:00 11/09/20 10:16 DC 11/09/20 08:44 Hydroxyzine HCl (Atarax) 25 mg BID PO 11/07/20 21:00 11/13/20 07:25 DC 11/12/20 20:04 Hydroxyzine HCl (Atarax) 25 mg TID PO 11/13/20 07:30 11/15/20 20:36 Ibuprofen (Advil) 600 mg Q6HP PRN PO PAIN 11/06/20 17:20 11/13/20 20:28 Lorazepam (Ativan) 2 mg STAT STAT PO 11/10/20 18:42 11/10/20 18:44 DC 11/10/20 18:50 Magnesium Hydroxide (Milk Of Magnesia) 30 ml DAILYPRN PRN PO CONSTIPATION 11/06/20 17:20 11/15/20 15:44 Miscellaneous (Unresolved Clarification Entry) SEE LABEL COMMENTS DAILY XX 11/12/20 09:00 11/13/20 08:33 DC Nicotine (Nicoderm Cq 21mg) 1 patch DAILY TD 11/07/20 09:00 11/15/20 08:50 Nitroglycerin (Nitrostat (1/ 150)) 0.4 mg STAT STAT SL 11/10/20 18:09 11/10/20 18:10 DC 11/10/20 18:29 Non-Formulary Medication ( See Comment Field Below ) SEE COMMENTS SECTION 1T@10 ID 11/13/20 10:00 11/11/20 11:03 DC Olanzapine (ZyPREXA) 10 mg BID PO 11/09/20 09:00 11/15/20 20:36 Oxazepam (Serax) 30 mg QHS PO 11/06/20 21:00 11/13/20 08:22 DC 11/12/20 20:05 Phenyleph/Shark Oil/Min Oil/Petrol (Preparation H Ointment) 1 dose QIDP PRN MA rectal pain /hemorrhoids 11/15/20 20:45 Polyethylene Glycol (Miralax) 1 pkt QHS PO 11/15/20 21:00 11/15/20 21:49 Prochlorperazine (Compazine) 5 mg Q6HP PRN PO NAUSEA 11/06/20 17:25 Senna/Docusate Sodium (Senokot S) 2 tab BID PO 11/15/20 21:00 11/15/20 19:08 Sertraline HCl (Zoloft) 50 mg QAM PO 11/10/20 09:00 11/11/20 11:17 DC 11/11/20 08:32 Sertraline HCl (Zoloft) 100 mg QAM PO 11/12/20 09:00 11/15/20 08:49 Tramadol HCl (Ultram) 50 mg Q6HP PRN PO MODERATE PAIN (PS 5-7) 11/06/20 17:20 11/15/20 20:37 Trazodone HCl (Desyrel) 50 mg QHSP PRN PO INSOMNIA 11/06/20 17:20 11/15/20 20:36 Allergies Coded Allergies: No Known Allergies (Unverified , 11/02/20) ANNEMARIE RUELAS MD Nov 16, 2020 08:27
[2020-11-16] MEDS: OLANZapine 10 MG TAB PO SCH (08:51)
[2020-11-16] MEDS: hydrOXYzine 25 MG TAB PO SCH ×3 (08:51→20:20)
[2020-11-16] MEDS: ASPIRIN 81MG ENTERIC TABLET PO SCH (08:51)
[2020-11-16] MEDS: CALCIUM CARBONATE 500 MG CHEW U/D PO SCH ×3 (08:52→20:49)
[2020-11-16] MEDS: SENOKOT S TAB PO SCH ×2 (08:52→20:20)
[2020-11-16] MEDS: NICOTINE 21MG/24HR 1 EA TRANSDERMAL TD SCH (08:52)
[2020-11-16] MEDS: SERTRALINE HCL 50 MG TAB PO SCH (08:52)
[2020-11-16] MEDS: traMADol 50 MG TAB PO PRN ×2 (08:54→20:22)
[2020-11-16 17:23] VITALS: BP 115/56
[2020-11-16] MEDS ORDERED: OLANZapine ORAL DISINTEGRATING TAB 5MG PO ONE (18:25)
[2020-11-16] MEDS: traZODone 50 MG TAB PO PRN (20:20)
[2020-11-16] MEDS: MIRALAX *UNIT DOSE* 17GM PACKET PO SCH (20:20)
[2020-11-17 06:38] VITALS: BP 122/84
[2020-11-17] MEDS: ASPIRIN 81MG ENTERIC TABLET PO SCH (08:47)
[2020-11-17] MEDS: CALCIUM CARBONATE 500 MG CHEW U/D PO SCH ×3 (08:48→20:42)
[2020-11-17] MEDS: SERTRALINE HCL 50 MG TAB PO SCH (08:48)
[2020-11-17] MEDS: SENOKOT S TAB PO SCH ×2 (08:48→20:18)
[2020-11-17] MEDS: hydrOXYzine 25 MG TAB PO SCH ×3 (08:48→20:18)
[2020-11-17] MEDS: traMADol 50 MG TAB PO PRN ×2 (08:48→20:18)
[2020-11-17] MEDS: NICOTINE 21MG/24HR 1 EA TRANSDERMAL TD SCH (08:49)
[2020-11-17] MEDS: OLANZapine 10 MG TAB PO SCH (08:49)
[2020-11-17] MEDS: GASTROGRAFIN SOLUTION 30ML PO SCH ×2 (15:29→16:01)
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
[2020-11-17 15:59] LABS: HEMATOCRIT 39.7 % (42.0-52.0); HEMOGLOBIN 11.7 g/dl (13.5-17.5); MEAN CORPUSCULAR HEMOGLOBIN 26.5 pg (27.0-33.0); MEAN CORPUSCULAR HGB CONC 29.5 g/dl (32.0-36.5); PLATELET COUNT, AUTOMATED 452 10^3/uL (150-450); RED BLOOD COUNT 4.41 10^6/uL (4.30-6.10); WHITE BLOOD COUNT 6.4 10^3/uL (4.0-10.0)
[2020-11-17 16:22] LABS: ALBUMIN 3.6 GM/DL (3.2-5.2); ALT/SGPT 66 U/L (12-78); BILIRUBIN,TOTAL 0.1 MG/DL (0.2-1.0); BLOOD UREA NITROGEN 15 MG/DL (7-18); CALCIUM LEVEL 9.4 MG/DL (8.5-10.1); CARBON DIOXIDE LEVEL 27 MEQ/L (21-32); CHLORIDE LEVEL 105 MEQ/L (98-107); CK-MB VALUE MASS < 1.0 NG/ML (<3.6); CPK CREATINE PHOSPHOKINASE 29 U/L (39-308); CREATININE FOR GFR 0.93 MG/DL (0.70-1.30); GLOMERULAR FILTRATION RATE > 60.0 (>60); GLUCOSE, FASTING 109 MG/DL (70-100); MB/CK RELATIVE INDEX 3.45 (< OR =4); POTASSIUM SERUM 4.2 MEQ/L (3.5-5.1); SODIUM LEVEL 138 MEQ/L (136-145); TOTAL PROTEIN 7.4 GM/DL (6.4-8.2); TROPONIN I < 0.02 NG/ML (< 0.10)
[2020-11-17 16:33] VITALS: BP 129/82
[2020-11-17] MEDS ORDERED: ISOVUE-370 76% 100ML VIAL As Ordered ONE (17:04)
[2020-11-17] MEDS: METAMUCIL (PSYLLIUM) PACKET PO SCH (17:43)
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
--- NOTE | 2020-11-17 17:59 | REPVR ---
PROCEDURE INFORMATION: Exam: CT Chest With Contrast; Diagnostic Exam date and time: 11/17/2020 5:11 PM Age: 35 years old Clinical indication: Chest pain; Additional info: Reevaluation of chest TECHNIQUE: Imaging protocol: Diagnostic computed tomography of the chest with contrast. Radiation optimization: All CT scans at this facility use at least one of these dose optimization techniques: automated exposure control; mA and/or kV adjustment per patient size (includes targeted exams where dose is matched to clinical indication); or iterative reconstruction. Contrast material: ISOVUE 370; Contrast volume: 100 ml; Contrast route: INTRAVENOUS (IV); COMPARISON: CT ANGIO CHEST 11/10/2020 9:01 PM FINDINGS: Lungs: Pulmonary vascular/interstitial pattern does not suggest active pulmonary edema. No suspicious lung mass or air space process. No central endobronchial lesion. Pleural spaces: No pleural effusion or pneumothorax. Heart: No overt cardiac enlargement or abnormal volume of pericardial fluid. Mediastinal space: Residual thymic tissue is present in the anterior mediastinum. Aorta: No thoracic aortic aneurysm or dissection. Lymph nodes: Small, nonspecific mediastinal nodes are present. Bones/joints: Bony structures show no acute fracture or destructive process. Soft tissues: No asymmetric abnormality of the extrathoracic soft tissues. IMPRESSION: No acute or concerning focal thoracic abnormality. Electronically signed by: Neftali Welsh On 11/17/2020 17:59:20 PM
--- NOTE | 2020-11-17 18:02 | REPVR ---
PROCEDURE INFORMATION: Exam: CT Abdomen And Pelvis With Contrast Exam date and time: 11/17/2020 5:11 PM Age: 35 years old Clinical indication: Abdominal pain; Additional info: Reevaluation of chest TECHNIQUE: Imaging protocol: Computed tomography of the abdomen and pelvis with contrast. Radiation optimization: All CT scans at this facility use at least one of these dose optimization techniques: automated exposure control; mA and/or kV adjustment per patient size (includes targeted exams where dose is matched to clinical indication); or iterative reconstruction. Contrast material: ISOVUE 370; Contrast volume: 100 ml; Contrast route: INTRAVENOUS (IV); COMPARISON: CT ABD/PEL W/IV ORAL CONTRAS 11/10/2020 9:01 PM FINDINGS: Liver: Liver appears normal with no focal abnormality. Gallbladder and bile ducts: Gallbladder is present and shows no evidence of gallstone. Pancreas: Pancreas appears normal. No focal mass or peripancreatic inflammation. Spleen: Spleen appears homogeneous without focal mass. Adrenal glands: Adrenal glands are normal in appearance. Kidneys and ureters: Kidneys appear normal, with no stone, solid mass or hydronephrosis. Stomach and bowel: No concerning asymmetry or abnormality at the GE junction. No evidence of small bowel obstruction. No anastomotic stricture involving a bowel anastomosis in the right mid abdomen. Terminal ileum has normal appearance. No evidence of acute diverticulitis. Moderate pattern of colonic stool is present. Small fluid density structure posterior to the left side of the bladder adjacent to the sigmoid colon is unchanged Appendix: Normal caliber appendix is identified, with no adjacent inflammation. Intraperitoneal space: No pneumoperitoneum. Vasculature: No aortic aneurysm. Main portal and splenic veins enhance normally. Urinary bladder: Urinary bladder appears normal. Reproductive: No overt enlargement of the prostate gland. Bones/joints: Bony structures show no acute fracture or destructive process. Soft tissues: Postsurgical changes of the midline anterior abdominal wall, and dystrophic calcifications of the left rectus abdominus muscle with overlying subcutaneous edema, unchanged since the prior exam. No effacement of normal fat planes in the ischiorectal fossa. IMPRESSION: 1. Small fluid collection between the bladder and sigmoid colon, unchanged in size and overall appearance. 2. Mild prominence of colonic stool suggesting perhaps an element of mild constipation. 3. No new surgical or inflammatory intra-abdominal or pelvic process. 4. Anterior abdominal wall postsurgical changes and posttraumatic or postsurgical changes of the left rectus muscle Electronically signed by: Neftali Welsh On 11/17/2020 18:02:45 PM
[2020-11-17] MEDS: IBUPROFEN 600MG TAB PO PRN (18:49)
[2020-11-17] MEDS: traZODone 50 MG TAB PO PRN (20:18)
[2020-11-17] MEDS: clonazePAM 1 MG TAB PO SCH (20:18)
[2020-11-17] MEDS ORDERED: OLANZapine 5 MG TAB PO SCH (21:00)
[2020-11-18 06:46] VITALS: BP 123/65
[2020-11-18] MEDS: traMADol 50 MG TAB PO PRN ×2 (08:37→19:53)
[2020-11-18] MEDS: OLANZapine 10 MG TAB PO SCH (08:38)
[2020-11-18] MEDS: SENOKOT S TAB PO SCH ×2 (08:38→19:53)
[2020-11-18] MEDS: SERTRALINE HCL 50 MG TAB PO SCH (08:38)
[2020-11-18] MEDS: hydrOXYzine 25 MG TAB PO SCH ×3 (08:39→19:52)
[2020-11-18] MEDS: ASPIRIN 81MG ENTERIC TABLET PO SCH (08:39)
[2020-11-18] MEDS: METAMUCIL (PSYLLIUM) PACKET PO SCH (08:39)
[2020-11-18] MEDS: CALCIUM CARBONATE 500 MG CHEW U/D PO SCH ×3 (08:39→19:50)
[2020-11-18] MEDS: NICOTINE 21MG/24HR 1 EA TRANSDERMAL TD SCH (08:40)
--- NOTE | 2020-11-18 15:17 | CR ---
CONSULTATION DATE: 11/18/2020 CONSULTATION REQUESTED BY: Dr. Cano REASON FOR CONSULTATION: Treatment of right inguinal sinus tract. Wound care telemedicine provides a visual assessment without the benefit of physical examination of a wound. It can assess the wound, establishing a diagnosis and probable etiology. This allows for an initial treatment plan. As wounds often change, it may be necessary to modify the original care. Our recommendation is periodic followup for the wound to reassess and to monitor its progress. Failure to comply may result in nonhealing of the wound, possible complications, and/or poor outcome. 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 He is unsure how long this has been present. States that it does drain fluid intermittently but cannot describe the drainage in detail. PHYSICAL EXAMINATION: There is a 0.2 x 0.2 cm sinus tract involving the right inguinal area. The periwound shows no inflammatory changes or maceration. The depth of the sinus tract was not ascertained. Patient indicates that there is no significant pain involved in the area. TREATMENT RECOMMENDATION: Apply Iodosorb (cadexomer iodine) ointment to the area once daily and cover with a foam dressing. Definitive treatment would include a surgical consult for an excision of the sinus tract, which would require some type of anesthesia and be performed in the operating room. This would give a definitive treatment for the wound, removing any chronic underlying scar tissue which would prohibit wound closure. VALENCIA
[2020-11-18 16:39] VITALS: BP 131/79
[2020-11-18] MEDS: IBUPROFEN 600MG TAB PO PRN (18:30)
[2020-11-18] MEDS: clonazePAM 1 MG TAB PO SCH (19:53)
[2020-11-18] MEDS: traZODone 50 MG TAB PO PRN (19:53)
[2020-11-18] MEDS: MIRALAX *UNIT DOSE* 17GM PACKET PO PRN (20:42)
[2020-11-18] MEDS ORDERED: risperiDONE 1 MG TAB PO SCH (21:00)
[2020-11-18] MEDS: CADEXOMER IODINE 10GM (IODOSORB) GEL TOP SCH (21:03)
--- NOTE | 2020-11-18 21:54 | MHIPN ---
PROGRESS NOTE DATE: 11/18/2020 SUBJECTIVE: I still hear voices. 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 OBJECTIVE: He is a 35-year-old male delusional, also complains of auditory hallucinations which have not gone away, which are of recent onset. Patient currently is on Zyprexa 15 mg at night and 10 mg in the a.m. Patient reports it is not helping him. Patient reports that Risperidone has helped him in the past. Currently isolative, preoccupied, hears voices. MENTAL STATUS EXAMINATION: Casually dressed, lying in his bed. Makes intermittent eye contact. Cooperative. Speech rate, rhythm and volume are good. Mood is depressed. Affect is constricted. Thought process linear, goal directed. Thought content; preoccupied. Complains of auditory hallucinations. His insight and judgment are fair to poor. He is alert and oriented to time, place and person. DIAGNOSIS: Schizophrenia paranoid type. Depression. Vital Signs: Temperature 98.7, pulse 99, blood pressure 131/79, respirations 16, pulse oximetry 98%. ASSESSMENT: Patient continues to have auditory hallucinations. PLAN: 1. Discontinue Zyprexa at night and place him on Risperidone 1 mg q.h.s. and titrate the dose, and slowly taper off Zyprexa. 2. Add Risperidone 1 mg at night and discontinue his Olanzapine 50 mg at night.
[2020-11-19 06:56] VITALS: BP 116/60
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
[2020-11-19 07:46] LABS: HEMATOCRIT 38.8 % (42.0-52.0); HEMOGLOBIN 11.8 g/dl (13.5-17.5); MEAN CORPUSCULAR HGB CONC 30.4 g/dl (32.0-36.5); MEAN CORPUSCULAR VOLUME 88.8 fl (80.0-96.0); PLATELET COUNT, AUTOMATED 390 10^3/uL (150-450); RED BLOOD COUNT 4.37 10^6/uL (4.30-6.10); WHITE BLOOD COUNT 4.7 10^3/uL (4.0-10.0)
[2020-11-19 08:08] LABS: BLOOD UREA NITROGEN 14 MG/DL (7-18); CALCIUM LEVEL 9.1 MG/DL (8.5-10.1); CARBON DIOXIDE LEVEL 28 MEQ/L (21-32); CHLORIDE LEVEL 108 MEQ/L (98-107); CREATININE FOR GFR 0.88 MG/DL (0.70-1.30); GLOMERULAR FILTRATION RATE > 60.0 (>60); GLUCOSE, FASTING 81 MG/DL (70-100); POTASSIUM SERUM 4.4 MEQ/L (3.5-5.1); SODIUM LEVEL 141 MEQ/L (136-145)
[2020-11-19 08:27] LABS: ANISOCYTOSIS 1+; ATYPICAL LYMPH 2 % (0-5); BASOPHILS 1 % (0-1); EOSINOPHILS 4 % (0-3); LYMPHOCYTES 35 % (16-44); MONOCYTES 8 % (0-5); NEUTROPHILS 50 % (28-66); PLATELET ESTIMATE NORMAL (NORMAL)
[2020-11-19] MEDS: METAMUCIL (PSYLLIUM) PACKET PO SCH (08:32)
[2020-11-19] MEDS: SENOKOT S TAB PO SCH ×2 (08:37→20:11)
[2020-11-19] MEDS: SERTRALINE HCL 50 MG TAB PO SCH (08:37)
[2020-11-19] MEDS: NICOTINE 21MG/24HR 1 EA TRANSDERMAL TD SCH (08:37)
[2020-11-19] MEDS: OLANZapine 10 MG TAB PO SCH (08:39)
[2020-11-19] MEDS: ASPIRIN 81MG ENTERIC TABLET PO SCH (08:39)
[2020-11-19] MEDS: CALCIUM CARBONATE 500 MG CHEW U/D PO SCH ×3 (08:39→20:10)
[2020-11-19] MEDS: hydrOXYzine 25 MG TAB PO SCH ×3 (08:39→20:12)
[2020-11-19] MEDS: traMADol 50 MG TAB PO PRN ×2 (08:39→20:11)
[2020-11-19 09:59] LABS: C REACTIVE PROTEIN QUANTITATIV 0.59 MG/DL (0.00-0.30)
[2020-11-19 10:34] LABS: ERYTHROCYTE SEDIMENTATION RATE 22 mm/hr (0-15)
[2020-11-19] MEDS: IBUPROFEN 600MG TAB PO PRN (15:53)
--- NOTE | 2020-11-19 15:55 | MHIPN ---
[facility] PROGRESS NOTE DATE: 11/19/2020 SUBJECTIVE: Patient is guarded. Reports he is fine. Still grandiose. Taking his medications without any side effects. OBJECTIVE: He is a 35-year-old male, delusional, . Reports, continues to hear voice. He is isolative; however, he reported that the risperidone is helping him, which was added yesterday, and we have been slowly tapering off his Zyprexa. MENTAL STATUS EXAMINATION: Casually dressed, cooperative. Makes good eye contact. Speech rate, rhythm, volume are good. Mood is depressed. Affect is constricted. Thought process linear, goal directed. Thought content: Preoccupied. Complaint of auditory hallucinations. Insight and judgment are poor. He is alert and oriented to time, place, and person. DIAGNOSIS: Schizophrenia, paranoid type. VITAL SIGNS: Temperature 98.2, pulse 87, respiratory rate 20, blood pressure 116/60. ASSESSMENT: Patient continues to be depressed and still has some hallucinations. PLAN: Increase his risperidone to 2 mg at night. TIME SPENT ON THE PATIENT: 25 minutes. MTDD
[2020-11-19] MEDS: CADEXOMER IODINE 10GM (IODOSORB) GEL TOP SCH (15:59)
[2020-11-19 16:32] VITALS: BP 132/78
[2020-11-19] MEDS: MOM 30ML SUSPENSION UDC PO PRN (20:10)
[2020-11-19] MEDS: PROCHLORPERAZINE 5 MG TAB (S0183) PO PRN (20:11)
[2020-11-19] MEDS: traZODone 50 MG TAB PO PRN (20:11)
[2020-11-19] MEDS: clonazePAM 1 MG TAB PO SCH (20:12)
[2020-11-19] MEDS ORDERED: risperiDONE 2 MG TAB PO SCH (21:00)
[2020-11-19] MEDS: OLANZapine ORAL DISINTEGRATING TAB 5MG PO PRN (22:17)
[2020-11-20 06:42] VITALS: BP 132/58
[2020-11-20] MEDS: hydrOXYzine 25 MG TAB PO SCH ×3 (08:07→20:05)
[2020-11-20] MEDS: OLANZapine 10 MG TAB PO SCH (08:07)
[2020-11-20] MEDS: SERTRALINE HCL 50 MG TAB PO SCH (08:07)
[2020-11-20] MEDS: NICOTINE 21MG/24HR 1 EA TRANSDERMAL TD SCH (08:07)
[2020-11-20] MEDS: CALCIUM CARBONATE 500 MG CHEW U/D PO SCH ×3 (08:08→21:00)
[2020-11-20] MEDS: METAMUCIL (PSYLLIUM) PACKET PO SCH (08:08)
[2020-11-20] MEDS: SENOKOT S TAB PO SCH ×2 (08:08→20:05)
[2020-11-20] MEDS: ASPIRIN 81MG ENTERIC TABLET PO SCH (08:08)
[2020-11-20] MEDS: traMADol 50 MG TAB PO PRN ×2 (08:09→20:06)
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
[2020-11-20] MEDS: clonazePAM 0.5 MG TAB PO SCH (14:49)
[2020-11-20 16:20] VITALS: BP 143/82
[2020-11-20] MEDS: CADEXOMER IODINE 10GM (IODOSORB) GEL TOP SCH (18:30)
[2020-11-20] MEDS: traZODone 50 MG TAB PO PRN (20:05)
[2020-11-20] MEDS ORDERED: risperiDONE 3 MG TAB PO SCH (21:00)
[2020-11-20] MEDS: OLANZapine ORAL DISINTEGRATING TAB 5MG PO PRN (21:11)
[2020-11-20] MEDS ORDERED: clonazePAM 1 MG TAB PO ONE (22:40)
[2020-11-21 06:00] VITALS: BP 113/73
[2020-11-21] MEDS: CALCIUM CARBONATE 500 MG CHEW U/D PO SCH ×3 (08:09→20:28)
[2020-11-21] MEDS: NICOTINE 21MG/24HR 1 EA TRANSDERMAL TD SCH (08:09)
[2020-11-21] MEDS: SERTRALINE HCL 50 MG TAB PO SCH (08:09)
[2020-11-21] MEDS: hydrOXYzine 25 MG TAB PO SCH (08:09)
[2020-11-21] MEDS: SENOKOT S TAB PO SCH ×2 (08:09→20:28)
[2020-11-21] MEDS: OLANZapine 10 MG TAB PO SCH (08:09)
[2020-11-21] MEDS: clonazePAM 0.5 MG TAB PO SCH (08:09)
[2020-11-21] MEDS: ASPIRIN 81MG ENTERIC TABLET PO SCH (08:09)
[2020-11-21] MEDS: METAMUCIL (PSYLLIUM) PACKET PO SCH (08:12)
[2020-11-21] MEDS: CADEXOMER IODINE 10GM (IODOSORB) GEL TOP SCH (15:23)
[2020-11-21] MEDS: OLANZapine ORAL DISINTEGRATING TAB 5MG PO PRN (15:26)
[2020-11-21] MEDS: GABAPENTIN 100 MG CAP PO SCH ×2 (15:35→20:28)
[2020-11-21 16:19] VITALS: BP 128/72
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
[2020-11-21] MEDS: risperiDONE 2 MG TAB PO SCH (20:29)
[2020-11-21] MEDS: traMADol 50 MG TAB PO PRN (20:29)
[2020-11-21] MEDS: traZODone 50 MG TAB PO PRN (20:29)
[2020-11-22 06:26] VITALS: BP 135/78
[2020-11-22] MEDS: METAMUCIL (PSYLLIUM) PACKET PO SCH (08:17)
[2020-11-22] MEDS: SENOKOT S TAB PO SCH ×2 (08:20→20:13)
[2020-11-22] MEDS: GABAPENTIN 100 MG CAP PO SCH ×3 (08:20→20:13)
[2020-11-22] MEDS: NICOTINE 21MG/24HR 1 EA TRANSDERMAL TD SCH (08:20)
[2020-11-22] MEDS: ASPIRIN 81MG ENTERIC TABLET PO SCH (08:20)
[2020-11-22] MEDS: SERTRALINE HCL 50 MG TAB PO SCH (08:20)
[2020-11-22] MEDS: CALCIUM CARBONATE 500 MG CHEW U/D PO SCH ×3 (08:20→20:12)
[2020-11-22] MEDS: clonazePAM 0.5 MG TAB PO SCH (08:21)
[2020-11-22] MEDS: OLANZapine 5 MG TAB PO SCH (08:21)
[2020-11-22] MEDS: CADEXOMER IODINE 10GM (IODOSORB) GEL TOP SCH (13:53)
[2020-11-22] MEDS: OLANZapine ORAL DISINTEGRATING TAB 5MG PO PRN (13:54)
[2020-11-22] MEDS: IBUPROFEN 600MG TAB PO PRN (15:33)
[2020-11-22 16:07] VITALS: BP_SYST 133; BP_SYST 134; BP_DIAS 73; BP_DIAS 80
[2020-11-22] MEDS: MIRALAX *UNIT DOSE* 17GM PACKET PO PRN (16:50)
[2020-11-22] MEDS: traZODone 50 MG TAB PO PRN (20:13)
[2020-11-22] MEDS: risperiDONE 2 MG TAB PO SCH (20:14)
[2020-11-22] MEDS: traMADol 50 MG TAB PO PRN (20:14)
[2020-11-23 06:30] VITALS: BP 138/71
[2020-11-23] MEDS: SENOKOT S TAB PO SCH ×2 (08:16→20:38)
[2020-11-23] MEDS: CALCIUM CARBONATE 500 MG CHEW U/D PO SCH ×3 (08:16→20:37)
[2020-11-23] MEDS: SERTRALINE 100 MG TAB PO SCH (08:16)
[2020-11-23] MEDS: METAMUCIL (PSYLLIUM) PACKET PO SCH (08:16)
[2020-11-23] MEDS: ASPIRIN 81MG ENTERIC TABLET PO SCH (08:16)
[2020-11-23] MEDS: OLANZapine 5 MG TAB PO SCH (08:18)
[2020-11-23] MEDS: NICOTINE 21MG/24HR 1 EA TRANSDERMAL TD SCH (08:18)
[2020-11-23] MEDS: GABAPENTIN 100 MG CAP PO SCH ×3 (08:18→20:37)
[2020-11-23] MEDS: clonazePAM 0.5 MG TAB PO SCH (08:18)
[2020-11-23] MEDS: OLANZapine ORAL DISINTEGRATING TAB 5MG PO PRN (12:59)
[2020-11-23] MEDS: traMADol 50 MG TAB PO PRN ×2 (13:00→22:08)
[2020-11-23] MEDS: CADEXOMER IODINE 10GM (IODOSORB) GEL TOP SCH (16:31)
[2020-11-23 16:36] VITALS: BP 118/80
[2020-11-23] MEDS: MOM 30ML SUSPENSION UDC PO PRN (19:38)
[2020-11-23] MEDS: risperiDONE 2 MG TAB PO SCH (20:37)
[2020-11-23] MEDS: traZODone 50 MG TAB PO PRN (20:37)
[2020-11-24 06:00] VITALS: BP 130/84
[2020-11-24] MEDS: METAMUCIL (PSYLLIUM) PACKET PO SCH (08:09)
[2020-11-24] MEDS: CALCIUM CARBONATE 500 MG CHEW U/D PO SCH ×3 (08:12→20:19)
[2020-11-24] MEDS: ASPIRIN 81MG ENTERIC TABLET PO SCH (08:12)
[2020-11-24] MEDS: NICOTINE 21MG/24HR 1 EA TRANSDERMAL TD SCH (08:12)
[2020-11-24] MEDS: SENOKOT S TAB PO SCH ×2 (08:12→20:19)
[2020-11-24] MEDS: SERTRALINE 100 MG TAB PO SCH (08:12)
[2020-11-24] MEDS: GABAPENTIN 100 MG CAP PO SCH (08:12)
[2020-11-24] MEDS: OLANZapine 5 MG TAB PO SCH (08:12)
[2020-11-24] MEDS: clonazePAM 0.5 MG TAB PO SCH (08:12)
[2020-11-24] MEDS: traMADol 50 MG TAB PO PRN (08:13)
--- NOTE | 2020-11-24 10:50 | ECGEPIP ---
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 Electronically Signed on 11-24-2020 10:50:00 EDT by Jarett Gandhi
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
[2020-11-24] MEDS: GABAPENTIN 300 MG CAP PO SCH ×2 (16:32→20:19)
[2020-11-24] MEDS: CADEXOMER IODINE 10GM (IODOSORB) GEL TOP SCH (16:33)
[2020-11-24] MEDS: OLANZapine ORAL DISINTEGRATING TAB 5MG PO PRN (17:36)
[2020-11-24 19:11] VITALS: BP 141/76
[2020-11-24] MEDS: HYDROCORTISONE 1% CREAM 30 GM TOP SCH (20:19)
[2020-11-24] MEDS: traZODone 50 MG TAB PO PRN (20:20)
[2020-11-24] MEDS ORDERED: risperiDONE 1 MG TAB PO SCH (21:00)
[2020-11-25 07:11] VITALS: BP 143/66
[2020-11-25] MEDS: METAMUCIL (PSYLLIUM) PACKET PO SCH (08:04)
[2020-11-25] MEDS: ASPIRIN 81MG ENTERIC TABLET PO SCH (08:05)
[2020-11-25] MEDS: SENOKOT S TAB PO SCH ×2 (08:05→20:25)
[2020-11-25] MEDS: SERTRALINE 100 MG TAB PO SCH (08:05)
[2020-11-25] MEDS: CALCIUM CARBONATE 500 MG CHEW U/D PO SCH ×3 (08:05→20:25)
[2020-11-25] MEDS: GABAPENTIN 300 MG CAP PO SCH ×3 (08:05→20:25)
[2020-11-25] MEDS: clonazePAM 0.5 MG TAB PO SCH (08:05)
[2020-11-25] MEDS: NICOTINE 21MG/24HR 1 EA TRANSDERMAL TD SCH (08:06)
[2020-11-25] MEDS: HYDROCORTISONE 1% CREAM 30 GM TOP SCH ×2 (08:06→20:26)
[2020-11-25] MEDS ORDERED: OLANZapine 2.5MG TABLET PO SCH (09:00)
[2020-11-25] MEDS: traMADol 50 MG TAB PO PRN ×2 (09:41→19:37)
[2020-11-25] MEDS: OLANZapine ORAL DISINTEGRATING TAB 5MG PO PRN (12:27)
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
[2020-11-25] MEDS: CADEXOMER IODINE 10GM (IODOSORB) GEL TOP SCH (15:06)
[2020-11-25 18:12] VITALS: BP 138/86
[2020-11-25] MEDS: traZODone 50 MG TAB PO PRN (20:25)
[2020-11-25] MEDS: risperiDONE 2 MG TAB PO SCH (20:25)
[2020-11-26 06:00] VITALS: BP 129/76
[2020-11-26] MEDS: HYDROCORTISONE 1% CREAM 30 GM TOP SCH ×2 (07:58→20:01)
[2020-11-26] MEDS: NICOTINE 21MG/24HR 1 EA TRANSDERMAL TD SCH (07:59)
[2020-11-26] MEDS: METAMUCIL (PSYLLIUM) PACKET PO SCH (08:00)
[2020-11-26] MEDS: ASPIRIN 81MG ENTERIC TABLET PO SCH (08:02)
[2020-11-26] MEDS: SERTRALINE 100 MG TAB PO SCH (08:02)
[2020-11-26] MEDS: clonazePAM 0.5 MG TAB PO SCH (08:02)
[2020-11-26] MEDS: SENOKOT S TAB PO SCH ×2 (08:02→20:02)
[2020-11-26] MEDS: OLANZapine 5 MG TAB PO SCH (08:02)
[2020-11-26] MEDS: GABAPENTIN 300 MG CAP PO SCH ×3 (08:02→20:02)
[2020-11-26] MEDS: CALCIUM CARBONATE 500 MG CHEW U/D PO SCH ×3 (08:03→20:02)
[2020-11-26] MEDS: traMADol 50 MG TAB PO PRN ×3 (08:06→20:03)
[2020-11-26] MEDS: CADEXOMER IODINE 10GM (IODOSORB) GEL TOP SCH (09:00)
[2020-11-26] MEDS: OLANZapine ORAL DISINTEGRATING TAB 5MG PO PRN (09:31)
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
[2020-11-26] MEDS ORDERED: PROPRANOLOL 20 MG TAB PO ONE (15:00)
[2020-11-26 18:08] VITALS: BP 135/69
[2020-11-26] MEDS: traZODone 50 MG TAB PO PRN (20:02)
[2020-11-26] MEDS: risperiDONE 2 MG TAB PO SCH (20:03)
[2020-11-27 06:36] VITALS: BP 99/60
[2020-11-27] MEDS: NICOTINE 21MG/24HR 1 EA TRANSDERMAL TD SCH (07:58)
[2020-11-27] MEDS: clonazePAM 0.5 MG TAB PO SCH (07:58)
[2020-11-27] MEDS: GABAPENTIN 300 MG CAP PO SCH ×3 (07:58→20:32)
[2020-11-27] MEDS: SERTRALINE 100 MG TAB PO SCH (07:59)
[2020-11-27] MEDS: ASPIRIN 81MG ENTERIC TABLET PO SCH (07:59)
[2020-11-27] MEDS: OLANZapine 5 MG TAB PO SCH (07:59)
[2020-11-27] MEDS: SENOKOT S TAB PO SCH ×2 (07:59→20:31)
[2020-11-27] MEDS: CALCIUM CARBONATE 500 MG CHEW U/D PO SCH ×3 (07:59→20:31)
[2020-11-27] MEDS: METAMUCIL (PSYLLIUM) PACKET PO SCH (08:02)
[2020-11-27] MEDS: HYDROCORTISONE 1% CREAM 30 GM TOP SCH ×2 (09:00→20:31)
[2020-11-27] MEDS: CADEXOMER IODINE 10GM (IODOSORB) GEL TOP SCH ×2 (09:00→18:56)
[2020-11-27] MEDS ORDERED: PROPRANOLOL 20 MG TAB PO ONE (10:00)
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
[2020-11-27 16:45] VITALS: BP 126/67
[2020-11-27] MEDS: IBUPROFEN 600MG TAB PO PRN (17:12)
[2020-11-27] MEDS: risperiDONE 2 MG TAB PO SCH (20:32)
[2020-11-27] MEDS: PROPRANOLOL 20 MG TAB PO SCH (20:34)
[2020-11-27] MEDS: traZODone 50 MG TAB PO PRN (21:29)
[2020-11-28 06:46] VITALS: BP 141/64
[2020-11-28] MEDS: PROPRANOLOL 20 MG TAB PO SCH ×2 (08:07→20:08)
[2020-11-28] MEDS: HYDROCORTISONE 1% CREAM 30 GM TOP SCH ×2 (08:07→20:07)
[2020-11-28] MEDS: OLANZapine 5 MG TAB PO SCH (08:08)
[2020-11-28] MEDS: SERTRALINE 100 MG TAB PO SCH (08:08)
[2020-11-28] MEDS: GABAPENTIN 300 MG CAP PO SCH ×3 (08:08→20:08)
[2020-11-28] MEDS: SENOKOT S TAB PO SCH ×2 (08:08→20:08)
[2020-11-28] MEDS: CALCIUM CARBONATE 500 MG CHEW U/D PO SCH ×3 (08:08→20:08)
[2020-11-28 08:09] LABS: HEMATOCRIT 41.2 % (42.0-52.0); HEMOGLOBIN 12.4 g/dl (13.5-17.5); MEAN CORPUSCULAR HGB CONC 30.1 g/dl (32.0-36.5); MEAN CORPUSCULAR VOLUME 89.8 fl (80.0-96.0); PLATELET COUNT, AUTOMATED 337 10^3/uL (150-450); RED BLOOD COUNT 4.59 10^6/uL (4.30-6.10); WHITE BLOOD COUNT 5.8 10^3/uL (4.0-10.0)
[2020-11-28] MEDS: ASPIRIN 81MG ENTERIC TABLET PO SCH (08:09)
[2020-11-28] MEDS: METAMUCIL (PSYLLIUM) PACKET PO SCH (08:10)
[2020-11-28] MEDS: NICOTINE 21MG/24HR 1 EA TRANSDERMAL TD SCH (08:10)
[2020-11-28] MEDS: IBUPROFEN 600MG TAB PO PRN ×2 (08:12→17:11)
[2020-11-28 08:31] LABS: BLOOD UREA NITROGEN 14 MG/DL (7-18); CALCIUM LEVEL 9.3 MG/DL (8.5-10.1); CARBON DIOXIDE LEVEL 26 MEQ/L (21-32); CHLORIDE LEVEL 108 MEQ/L (98-107); CREATININE FOR GFR 0.91 MG/DL (0.70-1.30); GLOMERULAR FILTRATION RATE > 60.0 (>60); GLUCOSE, FASTING 82 MG/DL (70-100); POTASSIUM SERUM 4.3 MEQ/L (3.5-5.1); SODIUM LEVEL 141 MEQ/L (136-145)
[2020-11-28] MEDS: GASTROGRAFIN SOLUTION 30ML PO SCH ×2 (10:28→11:01)
[2020-11-28] MEDS ORDERED: ISOVUE-370 76% 100ML VIAL As Ordered ONE (11:25)
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
[2020-11-28] MEDS: CADEXOMER IODINE 10GM (IODOSORB) GEL TOP SCH (17:13)
[2020-11-28] MEDS: OLANZapine ORAL DISINTEGRATING TAB 5MG PO PRN (18:41)
[2020-11-28 20:02] VITALS: BP 143/74
[2020-11-28] MEDS: risperiDONE 2 MG TAB PO SCH (20:07)
[2020-11-28] MEDS: traZODone 50 MG TAB PO PRN (20:08)
[2020-11-29 07:53] VITALS: BP 153/92
[2020-11-29] MEDS: PROPRANOLOL 20 MG TAB PO SCH ×2 (08:19→20:40)
[2020-11-29] MEDS: CALCIUM CARBONATE 500 MG CHEW U/D PO SCH ×3 (08:19→20:37)
[2020-11-29] MEDS: PROCHLORPERAZINE 5 MG TAB (S0183) PO PRN (08:19)
[2020-11-29] MEDS: HYDROCORTISONE 1% CREAM 30 GM TOP SCH ×2 (08:20→20:37)
[2020-11-29] MEDS: SERTRALINE 100 MG TAB PO SCH (08:21)
[2020-11-29] MEDS: OLANZapine 5 MG TAB PO SCH (08:21)
[2020-11-29] MEDS: ASPIRIN 81MG ENTERIC TABLET PO SCH (08:21)
[2020-11-29] MEDS: NICOTINE 21MG/24HR 1 EA TRANSDERMAL TD SCH (08:21)
[2020-11-29] MEDS: GABAPENTIN 300 MG CAP PO SCH ×3 (08:21→20:40)
[2020-11-29] MEDS: METAMUCIL (PSYLLIUM) PACKET PO SCH (08:22)
[2020-11-29] MEDS: SENOKOT S TAB PO SCH ×2 (08:22→20:40)
[2020-11-29] MEDS: IBUPROFEN 600MG TAB PO PRN ×2 (08:22→17:23)
[2020-11-29] MEDS: OLANZapine ORAL DISINTEGRATING TAB 5MG PO PRN ×2 (09:50→18:31)
[2020-11-29] MEDS: CADEXOMER IODINE 10GM (IODOSORB) GEL TOP SCH (16:13)
[2020-11-29 17:02] VITALS: BP 127/69
[2020-11-29] MEDS: risperiDONE 2 MG TAB PO SCH (20:40)
[2020-11-29] MEDS: traZODone 50 MG TAB PO PRN (20:40)
[2020-11-29] MEDS: traMADol 50 MG TAB PO PRN (20:41)
[2020-11-30] MEDS: traMADol 50 MG TAB PO PRN ×4 (00:17→20:08)
[2020-11-30 06:00] VITALS: BP 135/68
[2020-11-30] MEDS: METAMUCIL (PSYLLIUM) PACKET PO SCH (09:00)
[2020-11-30] MEDS: OLANZapine 5 MG TAB PO SCH (09:11)
[2020-11-30] MEDS: ASPIRIN 81MG ENTERIC TABLET PO SCH (09:11)
[2020-11-30] MEDS: SENOKOT S TAB PO SCH ×2 (09:11→20:06)
[2020-11-30] MEDS: HYDROCORTISONE 1% CREAM 30 GM TOP SCH ×2 (09:12→20:11)
[2020-11-30] MEDS: GABAPENTIN 300 MG CAP PO SCH ×3 (09:12→20:06)
[2020-11-30] MEDS: CALCIUM CARBONATE 500 MG CHEW U/D PO SCH ×3 (09:12→20:06)
[2020-11-30] MEDS: SERTRALINE 100 MG TAB PO SCH (09:12)
[2020-11-30] MEDS: NICOTINE 21MG/24HR 1 EA TRANSDERMAL TD SCH (09:13)
[2020-11-30] MEDS: PROPRANOLOL 20 MG TAB PO SCH ×2 (09:15→20:11)
[2020-11-30] MEDS: IBUPROFEN 600MG TAB PO PRN (09:19)
[2020-11-30] MEDS: OLANZapine ORAL DISINTEGRATING TAB 5MG PO PRN ×2 (11:00→18:29)
[2020-11-30] MEDS: CADEXOMER IODINE 10GM (IODOSORB) GEL TOP SCH (16:50)
[2020-11-30] MEDS: traZODone 50 MG TAB PO PRN (20:06)
[2020-11-30] MEDS: risperiDONE 2 MG TAB PO SCH (20:08)
[2020-12-01 06:46] VITALS: BP 116/77
[2020-12-01] MEDS: METAMUCIL (PSYLLIUM) PACKET PO SCH (08:54)
[2020-12-01] MEDS: HYDROCORTISONE 1% CREAM 30 GM TOP SCH ×2 (08:59→20:13)
[2020-12-01] MEDS: CALCIUM CARBONATE 500 MG CHEW U/D PO SCH ×3 (08:59→20:11)
[2020-12-01] MEDS: GABAPENTIN 300 MG CAP PO SCH ×3 (08:59→20:13)
[2020-12-01] MEDS: OLANZapine 5 MG TAB PO SCH (09:00)
[2020-12-01] MEDS: ASPIRIN 81MG ENTERIC TABLET PO SCH (09:00)
[2020-12-01] MEDS: SERTRALINE 100 MG TAB PO SCH (09:00)
[2020-12-01] MEDS: SENOKOT S TAB PO SCH ×2 (09:00→20:11)
[2020-12-01] MEDS: PROPRANOLOL 20 MG TAB PO SCH ×2 (09:01→20:12)
[2020-12-01] MEDS: NICOTINE 21MG/24HR 1 EA TRANSDERMAL TD SCH (09:01)
[2020-12-01] MEDS: traMADol 50 MG TAB PO PRN (09:01)
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
[2020-12-01 16:00] VITALS: BP 124/76
[2020-12-01] MEDS: OLANZapine ORAL DISINTEGRATING TAB 5MG PO PRN (16:56)
[2020-12-01] MEDS: CADEXOMER IODINE 10GM (IODOSORB) GEL TOP SCH (18:09)
[2020-12-01] MEDS: IBUPROFEN 600MG TAB PO PRN (19:45)
[2020-12-01] MEDS: traZODone 50 MG TAB PO PRN (20:12)
[2020-12-01] MEDS: risperiDONE 2 MG TAB PO SCH (20:12)
[2020-12-02 06:43] VITALS: BP 129/64
[2020-12-02] MEDS: IBUPROFEN 600MG TAB PO PRN (07:39)
[2020-12-02] MEDS: NICOTINE 21MG/24HR 1 EA TRANSDERMAL TD SCH (08:32)
[2020-12-02] MEDS: OLANZapine 5 MG TAB PO SCH (08:32)
[2020-12-02] MEDS: PROPRANOLOL 20 MG TAB PO SCH ×3 (08:33→20:02)
[2020-12-02] MEDS: ASPIRIN 81MG ENTERIC TABLET PO SCH (08:33)
[2020-12-02] MEDS: CALCIUM CARBONATE 500 MG CHEW U/D PO SCH ×3 (08:33→20:02)
[2020-12-02] MEDS: SERTRALINE 100 MG TAB PO SCH (08:33)
[2020-12-02] MEDS: SENOKOT S TAB PO SCH ×2 (08:33→20:03)
[2020-12-02] MEDS: GABAPENTIN 300 MG CAP PO SCH ×3 (08:33→20:03)
[2020-12-02] MEDS: METAMUCIL (PSYLLIUM) PACKET PO SCH (08:59)
[2020-12-02] MEDS: HYDROCORTISONE 1% CREAM 30 GM TOP SCH ×2 (09:00→20:30)
[2020-12-02] MEDS: OLANZapine ORAL DISINTEGRATING TAB 5MG PO PRN (12:21)
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
[2020-12-02 16:22] VITALS: BP 133/82
[2020-12-02] MEDS: CADEXOMER IODINE 10GM (IODOSORB) GEL TOP SCH (18:29)
[2020-12-02] MEDS: traZODone 50 MG TAB PO PRN (20:02)
[2020-12-02] MEDS: risperiDONE 2 MG TAB PO SCH (20:03)
[2020-12-03] MEDS: IBUPROFEN 600MG TAB PO PRN ×3 (00:15→21:37)
[2020-12-03 06:06] VITALS: BP 139/77
[2020-12-03] MEDS: METAMUCIL (PSYLLIUM) PACKET PO SCH (08:19)
[2020-12-03] MEDS: HYDROCORTISONE 1% CREAM 30 GM TOP SCH ×2 (08:20→20:14)
[2020-12-03] MEDS: SENOKOT S TAB PO SCH ×2 (08:24→20:12)
[2020-12-03] MEDS: SERTRALINE 100 MG TAB PO SCH (08:24)
[2020-12-03] MEDS: PROPRANOLOL 20 MG TAB PO SCH ×3 (08:25→20:13)
[2020-12-03] MEDS: CALCIUM CARBONATE 500 MG CHEW U/D PO SCH ×3 (08:25→20:12)
[2020-12-03] MEDS: ASPIRIN 81MG ENTERIC TABLET PO SCH (08:25)
[2020-12-03] MEDS: OLANZapine 5 MG TAB PO SCH (08:25)
[2020-12-03] MEDS: GABAPENTIN 300 MG CAP PO SCH ×3 (08:26→20:12)
[2020-12-03] MEDS: NICOTINE 21MG/24HR 1 EA TRANSDERMAL TD SCH (08:26)
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
[2020-12-03] MEDS: OLANZapine ORAL DISINTEGRATING TAB 5MG PO PRN (14:15)
[2020-12-03 16:27] VITALS: BP 138/66
[2020-12-03] MEDS: CADEXOMER IODINE 10GM (IODOSORB) GEL TOP SCH (16:48)
[2020-12-03] MEDS: traZODone 50 MG TAB PO PRN (20:11)
[2020-12-03] MEDS: risperiDONE 2 MG TAB PO SCH (20:11)
[2020-12-04 06:23] VITALS: BP 146/66
[2020-12-04] MEDS: HYDROCORTISONE 1% CREAM 30 GM TOP SCH ×2 (08:29→20:03)
[2020-12-04] MEDS: CALCIUM CARBONATE 500 MG CHEW U/D PO SCH ×3 (08:30→20:04)
[2020-12-04] MEDS: PROPRANOLOL 20 MG TAB PO SCH ×3 (08:30→20:05)
[2020-12-04] MEDS: SERTRALINE 100 MG TAB PO SCH (08:31)
[2020-12-04] MEDS: GABAPENTIN 300 MG CAP PO SCH ×3 (08:31→20:04)
[2020-12-04] MEDS: ASPIRIN 81MG ENTERIC TABLET PO SCH (08:31)
[2020-12-04] MEDS: OLANZapine 5 MG TAB PO SCH (08:31)
[2020-12-04] MEDS: NICOTINE 21MG/24HR 1 EA TRANSDERMAL TD SCH (08:32)
[2020-12-04] MEDS: METAMUCIL (PSYLLIUM) PACKET PO SCH (08:33)
[2020-12-04] MEDS: SENOKOT S TAB PO SCH ×2 (08:34→20:04)
[2020-12-04] MEDS: CADEXOMER IODINE 10GM (IODOSORB) GEL TOP SCH (09:00)
[2020-12-04] MEDS: OLANZapine ORAL DISINTEGRATING TAB 5MG PO PRN (10:05)
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
[2020-12-04] MEDS: hydrOXYzine 25 MG TAB PO PRN ×2 (15:29→20:04)
[2020-12-04] MEDS ORDERED: LORazepam 1 MG TAB PO STA (16:16)
[2020-12-04] MEDS: IBUPROFEN 600MG TAB PO PRN (17:23)
[2020-12-04 18:14] VITALS: BP 136/78
[2020-12-04 18:16] VITALS: BP 136/78
[2020-12-04 18:17] VITALS: BP 136/78
[2020-12-04] MEDS: traZODone 50 MG TAB PO PRN (20:04)
[2020-12-04] MEDS: risperiDONE 2 MG TAB PO SCH (20:04)
[2020-12-04] MEDS: clonazePAM 1 MG TAB PO SCH (20:04)
[2020-12-05 06:25] VITALS: BP 146/80
[2020-12-05] MEDS: METAMUCIL (PSYLLIUM) PACKET PO SCH (08:02)
[2020-12-05] MEDS: HYDROCORTISONE 1% CREAM 30 GM TOP SCH ×2 (08:02→20:12)
[2020-12-05] MEDS: clonazePAM 1 MG TAB PO SCH ×2 (08:05→20:02)
[2020-12-05] MEDS: SENOKOT S TAB PO SCH ×2 (08:05→20:11)
[2020-12-05] MEDS: PROPRANOLOL 20 MG TAB PO SCH ×3 (08:06→20:01)
[2020-12-05] MEDS: ASPIRIN 81MG ENTERIC TABLET PO SCH (08:06)
[2020-12-05] MEDS: CALCIUM CARBONATE 500 MG CHEW U/D PO SCH ×3 (08:06→20:11)
[2020-12-05] MEDS: GABAPENTIN 300 MG CAP PO SCH ×3 (08:06→20:01)
[2020-12-05] MEDS: SERTRALINE 100 MG TAB PO SCH (08:06)
[2020-12-05] MEDS: OLANZapine 5 MG TAB PO SCH (08:06)
[2020-12-05] MEDS: NICOTINE 21MG/24HR 1 EA TRANSDERMAL TD SCH (08:07)
[2020-12-05] MEDS: CADEXOMER IODINE 10GM (IODOSORB) GEL TOP SCH (09:00)
[2020-12-05] MEDS: hydrOXYzine 25 MG TAB PO PRN ×2 (11:33→20:02)
[2020-12-05] MEDS: IBUPROFEN 600MG TAB PO PRN (13:21)
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
[2020-12-05 16:06] VITALS: BP 146/74
[2020-12-05] MEDS: traZODone 50 MG TAB PO PRN (20:01)
[2020-12-05] MEDS: risperiDONE 2 MG TAB PO SCH (20:02)
[2020-12-06 06:49] VITALS: BP 123/69
[2020-12-06] MEDS: clonazePAM 1 MG TAB PO SCH ×2 (08:04→21:00)
[2020-12-06] MEDS: NICOTINE 21MG/24HR 1 EA TRANSDERMAL TD SCH (08:04)
[2020-12-06] MEDS: PROPRANOLOL 20 MG TAB PO SCH ×3 (08:04→21:00)
[2020-12-06] MEDS: CALCIUM CARBONATE 500 MG CHEW U/D PO SCH ×3 (08:04→21:00)
[2020-12-06] MEDS: OLANZapine 5 MG TAB PO SCH (08:04)
[2020-12-06] MEDS: SENOKOT S TAB PO SCH ×2 (08:04→21:00)
[2020-12-06] MEDS: ASPIRIN 81MG ENTERIC TABLET PO SCH (08:04)
[2020-12-06] MEDS: SERTRALINE 100 MG TAB PO SCH (08:04)
[2020-12-06] MEDS: GABAPENTIN 300 MG CAP PO SCH ×3 (08:04→21:00)
[2020-12-06] MEDS: METAMUCIL (PSYLLIUM) PACKET PO SCH (08:05)
[2020-12-06] MEDS: HYDROCORTISONE 1% CREAM 30 GM TOP SCH ×2 (08:05→21:00)
[2020-12-06] MEDS: CADEXOMER IODINE 10GM (IODOSORB) GEL TOP SCH (09:00)
[2020-12-06] MEDS: IBUPROFEN 600MG TAB PO PRN (10:47)
[2020-12-06 16:02] VITALS: BP 127/69
[2020-12-06] MEDS: hydrOXYzine 25 MG TAB PO PRN (17:25)
[2020-12-06] MEDS: risperiDONE 2 MG TAB PO SCH (21:00)
[2020-12-07 06:00] VITALS: BP 127/78
[2020-12-07] MEDS: NICOTINE 21MG/24HR 1 EA TRANSDERMAL TD SCH (08:28)
[2020-12-07] MEDS: clonazePAM 1 MG TAB PO SCH ×2 (08:28→20:03)
[2020-12-07] MEDS: GABAPENTIN 300 MG CAP PO SCH ×3 (08:29→20:03)
[2020-12-07] MEDS: ASPIRIN 81MG ENTERIC TABLET PO SCH (08:29)
[2020-12-07] MEDS: CALCIUM CARBONATE 500 MG CHEW U/D PO SCH ×3 (08:29→21:00)
[2020-12-07] MEDS: OLANZapine 5 MG TAB PO SCH (08:29)
[2020-12-07] MEDS: PROPRANOLOL 20 MG TAB PO SCH ×3 (08:29→20:07)
[2020-12-07] MEDS: SERTRALINE 100 MG TAB PO SCH (08:29)
[2020-12-07] MEDS: HYDROCORTISONE 1% CREAM 30 GM TOP SCH ×2 (08:29→20:02)
[2020-12-07] MEDS: SENOKOT S TAB PO SCH ×2 (08:30→21:00)
[2020-12-07] MEDS: METAMUCIL (PSYLLIUM) PACKET PO SCH (08:30)
[2020-12-07] MEDS: CADEXOMER IODINE 10GM (IODOSORB) GEL TOP SCH (08:30)
[2020-12-07] MEDS: hydrOXYzine 25 MG TAB PO PRN ×3 (09:32→20:02)
[2020-12-07 16:53] VITALS: BP 149/84
[2020-12-07] MEDS: OLANZapine ORAL DISINTEGRATING TAB 5MG PO PRN (18:09)
[2020-12-07] MEDS: traZODone 50 MG TAB PO PRN (20:02)
[2020-12-07] MEDS: risperiDONE 2 MG TAB PO SCH (20:03)
[2020-12-07] MEDS: traMADol 50 MG TAB PO PRN (20:32)
[2020-12-07] MEDS: IBUPROFEN 600MG TAB PO PRN (20:32)
[2020-12-08] MEDS: CADEXOMER IODINE 10GM (IODOSORB) GEL TOP SCH (09:00)
[2020-12-08] MEDS: METAMUCIL (PSYLLIUM) PACKET PO SCH (09:00)
[2020-12-08] MEDS: HYDROCORTISONE 1% CREAM 30 GM TOP SCH ×2 (09:00→21:00)
[2020-12-08] MEDS: PROPRANOLOL 20 MG TAB PO SCH ×3 (09:12→20:45)
[2020-12-08] MEDS: clonazePAM 1 MG TAB PO SCH ×2 (09:12→20:46)
[2020-12-08] MEDS: SENOKOT S TAB PO SCH ×2 (09:13→20:46)
[2020-12-08] MEDS: SERTRALINE 100 MG TAB PO SCH (09:14)
[2020-12-08] MEDS: OLANZapine 5 MG TAB PO SCH (09:14)
[2020-12-08] MEDS: GABAPENTIN 300 MG CAP PO SCH ×3 (09:14→20:45)
[2020-12-08] MEDS: CALCIUM CARBONATE 500 MG CHEW U/D PO SCH ×3 (09:14→20:46)
[2020-12-08] MEDS: NICOTINE 21MG/24HR 1 EA TRANSDERMAL TD SCH (09:15)
[2020-12-08] MEDS: ASPIRIN 81MG ENTERIC TABLET PO SCH (09:15)
[2020-12-08] MEDS: IBUPROFEN 600MG TAB PO PRN (10:31)
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
[2020-12-08] MEDS: hydrOXYzine 25 MG TAB PO PRN ×2 (16:05→20:45)
[2020-12-08] MEDS: OLANZapine ORAL DISINTEGRATING TAB 5MG PO PRN (17:14)
[2020-12-08 17:55] VITALS: BP 142/79
[2020-12-08] MEDS: risperiDONE 2 MG TAB PO SCH (20:46)
[2020-12-08] MEDS: traMADol 50 MG TAB PO PRN (20:46)
[2020-12-08] MEDS: traZODone 50 MG TAB PO PRN (21:28)
[2020-12-09 06:32] VITALS: BP 156/77
[2020-12-09] MEDS: ASPIRIN 81MG ENTERIC TABLET PO SCH (08:17)
[2020-12-09 08:19] VITALS: BP 120/70
[2020-12-09] MEDS: SERTRALINE 100 MG TAB PO SCH (08:19)
[2020-12-09] MEDS: OLANZapine 5 MG TAB PO SCH (08:19)
[2020-12-09] MEDS: GABAPENTIN 300 MG CAP PO SCH (08:19)
[2020-12-09] MEDS: PROPRANOLOL 20 MG TAB PO SCH (08:19)
[2020-12-09] MEDS: clonazePAM 1 MG TAB PO SCH (08:20)
[2020-12-09] MEDS: CALCIUM CARBONATE 500 MG CHEW U/D PO SCH (08:21)
[2020-12-09] MEDS: NICOTINE 21MG/24HR 1 EA TRANSDERMAL TD SCH (08:21)
[2020-12-09] MEDS: METAMUCIL (PSYLLIUM) PACKET PO SCH (08:21)
[2020-12-09] MEDS: SENOKOT S TAB PO SCH (08:21)
[2020-12-09] MEDS: CADEXOMER IODINE 10GM (IODOSORB) GEL TOP SCH (09:00)
[2020-12-09] MEDS: HYDROCORTISONE 1% CREAM 30 GM TOP SCH (09:00)
[2020-12-09] MEDS ORDERED: RISP-9 PO (10:36)
[2020-12-09] MEDS ORDERED: CLON1TAB8 PO (10:36)
[2020-12-09] MEDS ORDERED: OLAN5TAB PO (10:36)
[2020-12-09] MEDS ORDERED: HYDR-3363 PO (10:36)
[2020-12-09] MEDS ORDERED: PROP20TA PO (10:36)
[2020-12-09] MEDS ORDERED: CALC200T15 PO (10:36)
[2020-12-09] MEDS ORDERED: ZOLO100T PO (10:36)
[2020-12-09] MEDS ORDERED: GABA-282 PO (10:36)
[2020-12-09] MEDS ORDERED: TRAZ-252 PO (10:36)
--- NOTE | 2020-12-09 12:11 | MHDS ---
CRITICAL ACCESS HOSPITAL DISCHARGE SUMMARY DATE OF ADMISSION: 11/06/2020 DATE OF DISCHARGE: 12/09/2020 DIAGNOSES: 1. Schizophrenia, paranoid type. 2. Substance use disorder. IDENTIFYING DATA: He is a 35-year-old male with significant history of mental illness. Was admitted because of extreme anxiety, chest pain, and abdominal pain. HISTORY OF PRESENT ILLNESS: He has significant history of bipolar disorder and multiple attempts of suicide, one time perforating his intestine and had to be treated with intestinal as well as diaphragm repair. He was brought to the ER from [facility] where he complained of chest pain and abdominal pain. He was extremely paranoid. He reported that he believes his neighbor is after him to hurt him. He also complained of auditory hallucinations. Patient has a significant history of suicide attempt including drinking bleach. COURSE IN THE HOSPITAL: Patient was continuously hearing voices, and he was paranoid, and he was extremely anxious. He was investigated by the [employer]. Medically there were no causes found. While patient was on the unit, several of his medications were changed. Initially he was on Zyprexa which was titrated upwards. Still continued to have anxiety, and he was placed on risperidone, and we were trying to taper off his Zyprexa. He continued with his anxiety. Initially benzodiazepines were given, and later on propranolol was substituted. He made some recovery, but his anxiety continued, and he continued to have auditory hallucinations. MENTAL STATUS EXAMINATION: Casually dressed, well groomed, cooperative. Makes good eye contact. Speech rate, rhythm, and volume are good. Thought process linear, goal directed. Thought content: Denies any suicidal thoughts. Perception: Continues to have auditory hallucinations. Insight and judgment are fair to limited. Memory immediate, remote, and recent is good. LABORATORY DATA: CBC on 11/28 unremarkable. CMP within normal limits. Abdominal and pelvic CT: Mostly it showed earlier resection of the intestine. Otherwise it was negative. Chest CT: No focal thoracic abnormality. CT angiography was normal which was done with contrast. EKG was normal. CURRENT MEDICATIONS: 1. Clonazepam 1 mg b.i.d. 2. Propranolol 20 mg t.i.d. 3. Olanzapine 5 mg once daily. 4. Risperidone 4 mg at night. 5. Gabapentin 300 mg t.i.d. 6. Sertraline 100 mg in the a.m. PLAN: Plan is to transfer him to [facility] for further stabilization. [place]
[2020-12-09] MEDS ORDERED: LORazepam 1 MG TAB PO ONE (12:55)
== END 2020-12-09 14:24 | DRG 750 ==
LOC: M PSY 17:53
PROVIDERS: ADMIT Psychiatry & Neurology Psychiatry; ATTEND Psychiatry & Neurology Psychiatry
DX: F20.0 Paranoid schizophrenia (principal); I10 Essential (primary) hypertension; Z91.5 Personal history of self-harm; R07.9 Chest pain, unspecified; D64.9 Anemia, unspecified; K59.00 Constipation, unspecified; R74.01 Elevation of levels of liver transaminase levels; K57.30 Diverticulosis of large intestine without perforation or abscess without bleeding; Z79.82 Long term (current) use of aspirin; Z79.899 Other long term (current) drug therapy; Z98.890 Other specified postprocedural states